=== PATIENT | male | born 1945 | race Caucasian/White ===

== ENCOUNTER 2019-12-29 08:59 | Inpatient (IN) | payer MEDICARE, BC ==
[~2019-12-29 08:59] MED LIST: Albumin 5% 500 ML ONE; Bupivacaine PF 0.5% 30 ML VIAL ONE; Dexamethasone 4 mg/ml Vial ONE; Dexmedetomidine 200 MCG/2 ML VIAL ONE; EPINEPHrine 1 MG/ML AMP ONE; Fentanyl 250 MCG/5 ML VIAL ONE; Heparin 10,000 UNITS/1 ML VIAL ONE; Midazolam HCl 5 mg/5 ml Vial ONE
[2019-12-29] MEDS ORDERED: Hetastarch 6% 500 ML 500 ML IVPB PRN (12:34)
[2019-12-29] MEDS ORDERED: Morphine 2 MG/ML SYRINGE SLOW IVP PRN (12:34)
[2019-12-29] MEDS ORDERED: Nitroglycerin 50 MG/250 ML BOT 250 ML IVPB PRN (12:34)
[2019-12-29] MEDS ORDERED: Mag-Al 1200 mg/1200 mg/30 ML UDCUP PO PRN (12:34)
[2019-12-29] MEDS ORDERED: Promethazine HCl 25 MG/ML VIAL IM PRN (12:34)
[2019-12-29] MEDS ORDERED: Bisacodyl 5 MG TAB PO PRN (12:34)
[2019-12-29] MEDS ORDERED: Guaifenesin DM 100-10/5 ML UDCUP PO PRN (12:34)
[2019-12-29] MEDS ORDERED: Magnesium 2 GM/50 ML 2 GM in Premix Bag 1 BAG IVPB SCH (12:34)
[2019-12-29] MEDS ORDERED: Phenylephrine 10 MG/NS 250 ML 250 ML IVPB PRN (12:34)
[2019-12-29] MEDS ORDERED: D5 1/2 NS w/20 mEq KCL 1,000 ML IV SCH (12:34)
[2019-12-29] MEDS ORDERED: traMADol HCl 50 MG TAB PO PRN (12:34)
[2019-12-29] MEDS ORDERED: Acetaminophen 325 MG TAB PO PRN (12:34)
[2019-12-29] MEDS ORDERED: Ondansetron PF 4 MG/2 ML Vial IVP PRN (12:34)
[2019-12-29] MEDS ORDERED: Norepinephrine 8 MG/0.9% NS 250 ML IVPB PRN (12:34)
[2019-12-29] MEDS ORDERED: Fentanyl 100 MCG/2 ML VIAL SLOW IVP PRN ×2 (12:34)
[2019-12-29] MEDS ORDERED: Bisacodyl 10 MG SUPP PR PRN (12:34)
[2019-12-29] MEDS ORDERED: hydrALAZINE 20 MG/ML VIAL SLOW IVP PRN (12:34)
[2019-12-29] MEDS ORDERED: Potassium Chloride 20 MEQ/100 ML PREMIX BAG IVPB PRN (12:34)
[2019-12-29] MEDS ORDERED: D5 1/2 NS w/20 mEq KCL 1,000 ML ONE (12:35)
[2019-12-29] MEDS ORDERED: Glycopyrrolate 0.2 MG/ML 5 ML SYRINGE ONE (12:52)
[2019-12-29] MEDS ORDERED: Heparin 5,000 UNITS/ML VIAL ONE (12:52)
[2019-12-29] MEDS ORDERED: Rocuronium Bromide 10 MG/ML (10ML VIAL) ONE (12:52)
[2019-12-29] MEDS ORDERED: Papaverine 60 MG/2 ML VIAL ONE (12:52)
[2019-12-29] MEDS ORDERED: Heparin 30,000 units/30 ml VIAL ONE (12:52)
[2019-12-29] MEDS ORDERED: Potassium Chloride 60 MEQ/30 ML VIAL ONE (12:52)
[2019-12-29] MEDS ORDERED: Calcium Chloride 1 GM/10 ML Abboject SYRINGE ONE (12:52)
[2019-12-29] MEDS ORDERED: Thrombin 5000 UNITS/5 ML VIAL ONE (12:52)
[2019-12-29] MEDS ORDERED: Lidocaine 2% PF 5 ML VIAL ONE (12:52)
[2019-12-29] MEDS ORDERED: Protamine Sulfate 250 MG/25 ML VIAL ONE (12:52)
[2019-12-29] MEDS ORDERED: PROPOFOL 200 MG/20 ML VIAL ONE (12:52)
[2019-12-29] MEDS ORDERED: Lidocaine 1% PF 5 ML VIAL ONE (12:52)
[2019-12-29] MEDS ORDERED: Vecuronium 10 MG VIAL ONE (12:52)
[2019-12-29] MEDS ORDERED: Cardioplegic Soln 1,000 ML BAG ONE (12:52)
[2019-12-29] MEDS ORDERED: Sodium Bicarb 50 MEQ/50 ML Abboject 8.4% SYRINGE ONE (12:52)
[2019-12-29] MEDS ORDERED: Magnesium Sulfate 1 GM/2 ML VIAL ONE (12:52)
[2019-12-29] MEDS ORDERED: Aminocaproic Acid 5 GM/20 ML VIAL ONE (12:52)
[2019-12-29] MEDS ORDERED: Ondansetron PF 4 MG/2 ML Vial ONE (12:52)
[2019-12-29] MEDS ORDERED: Norepinephrine 4 MG/4 ML VIAL ONE (12:52)
[2019-12-29 12:54] LABS: Actual Bicarbonate (HCO3a) 23.4 mEq/L (22-28); Base Excess (BEa) -5.1 mEq/L (-2.0 to +3.0); CO2 Tension 58.4 mmHg (35.0-45.0); Calcium, Ionized 1.25 mmol/L (1.12-1.30); Carboxyhemoglobin (COHb) 0.7 gm% (0.0-3.0); Hemoglobin (Hb) 13.3 g/dL (14.0-18.0); O2 Tension (PaO2), arterial 115.8 mmHg (> 70.0); Potassium - ABG Lab 4.21 mmol/L (3.70-5.30)
[2019-12-29 13:04] LABS: Puncture Site ALINE; pH, Arterial 7.22 (7.35-7.45)
[2019-12-29 13:18] LABS: #Eosinphils 0.1 thou/uL (0.0-0.7); #Lymphocytes 1.1 thou/uL (1.20-3.40); #Monocytes 0.7 thou/uL (0.11-0.59); #Neutrophils 11.7 thou/uL (1.40-6.50); %Basophils 0.3 % (0.0-1.0); %Eosinophils 0.7 % (0.0-10.0); %Lymphocytes 8.1 % (21.0-51.0); %Monocytes 5.1 % (0.0-10.0); %Neutrophils 85.7 % (42.0-75.0); Hemoglobin 12.8 g/dL (14.0-18.0); Mean Corpuscular Volume 93.8 fL (78.0-98.0); Mean Platelet Volume 9.1 fL (7.4-10.4); Platelet Count 105 thou/uL (130-400); RBC Distribution Width 13.7 % (11.5-14.5); Red Blood Cell (RBC) Count 4.27 mill/uL (4.70-6.10); White Blood Cell (WBC) Count 13.6 thou/uL (4.8-10.8)
[2019-12-29 13:19] LABS: INR-International Normal Ratio 1.3; PTT 32.6 SEC (22.9-36.1); Prothrombin Time 15.9 sec (12.0-14.7)
[2019-12-29 13:28] VITALS: BMI 24.9
[2019-12-29 13:34] LABS: Anion Gap 9 mmol/L (10-20); BUN (Urea Nitrogen) 14 mg/dL (8.4-25.7); Calc. Creatinine Clearance 104 mL/min (70-130); Calcium 8.4 mg/dL (7.8-10.44); Carbon Dioxide 23 mmol/L (23-31); Chloride 110 mmol/L (98-107); Estimated GFR-MDRD Greater than 90; Glucose 133 mg/dL (83-110); Potassium 4.3 mmol/L (3.5-5.1); Sodium 138 mmol/L (136-145)
[2019-12-29 13:35] LABS: Platelet Morphology Comment Appears Decreased; RBC Morphology Normal
[2019-12-29] MEDS: CEFAZOLIN 2 GM in Premix Bag 1 BAG IVPB SCH ×2 (15:23→23:04)
--- NOTE | 2019-12-29 16:02 | RAD ---
PORTABLE CHEST: 12/29/19 INDICATIONS: Postop sternotomy. COMPARISON: No recent comparison. FINDINGS/IMPRESSION: Cardiomegaly with postop sternotomy change. Mild vascular engorgement. Left basilar atelectasis or in filtrate cannot be excluded. Small effusions are suspected. Central line overlies the SVC and right a trium. POS: [facility]
--- NOTE | 2019-12-29 17:39 | EKG ---
Test Reason : POST CABG Blood Pressure : / mmHG Vent. Rate : 061 BPM Atrial Rate : 061 BPM P-R Int : 198 ms QRS Dur : 082 ms QT Int : 442 ms P-R-T Axes : 031 -35 043 degrees QTc Int : 444 ms Normal sinus rhythm Left axis deviation Abnormal ECG When compared with ECG of 07-MAY-2010 12:48, No significant change was found Confirmed by CHARMAINE MCFARLANE, DR. Patterson ([id number]) on 12/29/2019 5:39:31 PM Referred By: Radha TORRES Confirmed By:DR. Yesenia MONTANO MD
[2019-12-29] MEDS: Ketorolac Tromethamine 30 MG/ML VIAL IVP SCH ×2 (18:31→23:01)
[2019-12-29 18:43] LABS: Hemoglobin 10.4 g/dL (14.0-18.0)
[2019-12-29 18:58] LABS: Potassium 4.6 mmol/L (3.5-5.1)
--- NOTE | 2019-12-29 19:07 | CON ---
DATE OF CONSULTATION: 12/28/2019 REASON FOR CONSULTATION: Coronary artery disease, need for urgent bypass. HISTORY OF PRESENT ILLNESS: Mr. Holt is a 74-year-old gentleman who was seen by Dr. Lr, evaluated with outpatient PET scan, which was grossly abnormal with reversible ischemia in the anterior wall. His complaints at that time were chest pressure, tightness, burning, and shortness of breath during the testing. He was brought in for cardiac catheterization, which revealed LAD diagonal bifurcation near occlusion. He was transferred from the [facility] to [facility] for urgent bypass. Currently, the patient is asymptomatic, resting comfortably on the stretcher. PAST MEDICAL HISTORY: 1. GERD. 2. Dyslipidemia. 3. Hypertension. 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 6. Depression. 7. Hypertension. 8. Coronary artery disease. 9. 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 PAST SURGICAL HISTORY: 1. Appendectomy. 2. Right hip replacement. 3. Left arm surgery. 4. Cochlear implant. SOCIAL HISTORY: He quit smoking in 1974. He does not use alcohol or other drugs. He is and accompanied by his . ALLERGIES: VICODIN. CURRENT MEDICATIONS: Noted in the MAR. PHYSICAL EXAMINATION: GENERAL: This is a well-developed, well-nourished male, resting comfortably in the emergency department. VITAL SIGNS: His heart rate is 70 and regular. Blood pressure is 150/72. NECK: Supple without bruit. CHEST: Clear bilaterally. HEART: Rhythm is regular without murmur. ABDOMEN: Soft, nontender. EXTREMITIES: No edema. VASCULAR: He has palpable carotid, radial, femoral, dorsalis pedis pulses bilaterally. VENOUS: There is no venous varicosities or venous stasis changes. PSYCHIATRIC: He is awake, alert, and oriented to person, place, and time. ASSESSMENT: Urgent coronary artery bypass grafting. PLAN: Plan is for bypass to LAD and first diagonal branch. Job ID: [id number]
[2019-12-29] MEDS ORDERED: Atorvastatin Calcium 20 MG TAB PO SCH (21:00)
[2019-12-29] MEDS ORDERED: Famotidine/PF 20 mg/2ml Vial SLOW IVP SCH (21:00)
[2019-12-30] MEDS: traMADol HCl 50 MG TAB PO PRN ×2 (03:47→20:31)
[2019-12-30 04:59] LABS: #Lymphocytes 0.9 thou/uL (1.20-3.40); #Neutrophils 8.4 thou/uL (1.40-6.50); %Basophils 0.1 % (0.0-1.0); %Eosinophils 0.1 % (0.0-10.0); %Lymphocytes 8.7 % (21.0-51.0); %Monocytes 9.8 % (0.0-10.0); %Neutrophils 81.3 % (42.0-75.0); Hemoglobin 10.6 g/dL (14.0-18.0); Mean Corpuscular Hemoglobin 30.3 pg (27.0-31.0); Mean Corpuscular Volume 94.7 fL (78.0-98.0); Mean Platelet Volume 10.2 fL (7.4-10.4); Platelet Count 109 thou/uL (130-400); RBC Distribution Width 13.6 % (11.5-14.5); Red Blood Cell (RBC) Count 3.51 mill/uL (4.70-6.10); White Blood Cell (WBC) Count 10.3 thou/uL (4.8-10.8)
[2019-12-30 05:02] LABS: Anion Gap 9 mmol/L (10-20); BUN (Urea Nitrogen) 17 mg/dL (8.4-25.7); Calc. Creatinine Clearance 103 mL/min (70-130); Calcium 7.8 mg/dL (7.8-10.44); Carbon Dioxide 25 mmol/L (23-31); Chloride 107 mmol/L (98-107); Estimated GFR-MDRD Greater than 90; Glucose 128 mg/dL (83-110); Potassium 4.4 mmol/L (3.5-5.1); Sodium 137 mmol/L (136-145)
[2019-12-30] MEDS: Ketorolac Tromethamine 30 MG/ML VIAL IVP SCH ×3 (05:32→18:28)
--- NOTE | 2019-12-30 07:44 | OP ---
DATE OF PROCEDURE: 12/29/2019 PREOPERATIVE DIAGNOSES: 1. Coronary artery disease. 2. History of Guillain-[place]. 3. Hypertension. 4. Dyslipidemia. PROCEDURES PERFORMED: 1. Left radial artery arterial line placement. 2. Coronary artery bypass grafting x2: a. Left internal mammary artery to 1.0 mm proximal left anterior descending artery - good conduit and small target. b. Reverse saphenous vein to 0.8 mm D1 - good conduit and small targets. J[employer] APPLICATION DEVELOPER SURGEON: Anthony Campos MD ANESTHESIA: General endotracheal - Mason Cat MD. PUMP TIME: 45 minutes. CROSSCLAMP TIME: 31 minutes. LOW CORE TEMPERATURE: 36 degrees Celsius. KEYBOARD SPECIALIST: Cecy Rai. DRAINS: 24-Anguillan chest tubes x2. DRIPS: None. TRANSFUSIONS: None. DESCRIPTION OF PROCEDURE: After consent was obtained, the patient was brought to the operating room, placed in supine position on the operating table. Appropriate central line and monitors were placed, and general endotracheal anesthesia was induced. Chest, abdomen, and legs were prepped and draped in usual sterile fashion. Greater saphenous vein was harvested from the left thigh utilizing skip incisions. Wounds were irrigated and closed in layers. Median sternotomy was performed. Left internal mammary artery was harvested as a pedicle graft. The patient was systemically heparinized. Distal pedicle was divided and infused with papaverine. Thymic fat and pericardium were divided with electrocautery. Pericardial stay sutures were placed. Aortic and atrial cannulation was performed. After adequate heparinization, retrograde prime was performed. The patient was placed on cardiopulmonary bypass. Aortic crossclamp was applied, and antegrade sanguineous cardioplegic arrest was obtained. 1 L of antegrade cold [place] cardioplegia was given. Topical cold solution was used. Reverse saphenous vein was anastomosed to the proximal diagonal #1 in end-to-side fashion. Prior to completion of the anastomosis, a 1-mm probe dilated the anastomosis proximally and distally. Anastomosis was tested and was hemostatic. Mammary artery was brought through a window in the pericardium and anastomosed to LAD in end-to-side fashion with running 7-0 Prolene suture. On release of mammary clamps, good hooding of the anastomosis and good distal flow. Pedicle was secured with an interrupted 6-0 Prolene suture. The cross-clamp was removed, and partial occluding clamp placed. Saphenous vein was anastomosed to punch site in the aorta with running 6-0 Prolene suture. Partial occluding clamp was removed and graft was deaired. Anastomoses were inspected for hemostasis, which was good. The patient was warmed and weaned from cardiopulmonary bypass. After resumption of sinus rhythm, good hemodynamics, temperature greater than 36.5, bypass was discontinued. Transfusions were given. Protamine was administered. Decannulation was performed. A pursestring suture secured. The aortic cannulation site was reinforced with 4-0 Prolene suture. After adequate hemostasis had been obtained, 24-Anguillan chest tubes x2 were placed in mediastinum. The sternum was treated with vancomycin paste. Sternum was closed with #7 wire. Sternum was treated with platelet rich plasma, wires were twisted and buried. Wounds were irrigated. The parasternal block was performed with 0.5% Marcaine mixed with Decadron. The wounds were then treated with platelet poor plasma and closed in multiple layers. Needle, sponge, and instrument counts were all reported as correct at the end of the procedure. The patient was awakened, extubated, and transferred to the intensive care in stable, but critical condition. Job ID: [id number]
--- NOTE | 2019-12-30 07:50 | RAD ---
EXAM: Portable chest PROVIDED CLINICAL HISTORY: Post open heart COMPARISON: 12/29/2019 FINDINGS: Mediastinal drain is no longer apparent. Additional significant interval change with respect to the p rior examination is not apparent. IMPRESSION: As above.
[2019-12-30] MEDS: CEFAZOLIN 2 GM in Premix Bag 1 BAG IVPB SCH (08:20)
[2019-12-30] MEDS: Aspirin 325 MG TAB PO SCH (08:21)
[2019-12-30] MEDS: Magnesium 2 GM/50 ML 2 GM in Premix Bag 1 BAG IVPB SCH (08:21)
[2019-12-30] MEDS ORDERED: Prevnar 13-Val Conj/PF 0.5 ML SYRINGE IM ONE (09:00)
[2019-12-30] MEDS: ALPRAZolam 0.25 MG TAB PO PRN (20:30)
[2019-12-30] MEDS: Atorvastatin Calcium 40 MG TAB PO SCH (20:30)
[2019-12-31] MEDS: Ketorolac Tromethamine 30 MG/ML VIAL IVP SCH ×3 (00:01→12:02)
[2019-12-31] MEDS: Magnesium 2 GM/50 ML 2 GM in Premix Bag 1 BAG IVPB SCH (09:35)
[2019-12-31] MEDS: Aspirin 325 MG TAB PO SCH (09:35)
--- NOTE | 2019-12-31 10:23 | PRG ---
DATE OF SERVICE: 12/31/2019 The patient's blood pressure is running about 90 to 100. His heart rate is 88. He has just finished a walk around the hallway without difficulty and has no complaints this morning. His weight is 172 pounds. Chest incision is good. His lungs are clear to auscultation. His legs are without edema. He did have some fever last night, but this resolved with Tylenol. We will transfer him to the telemetry floor and encourage further ambulation, hold any blood pressure medicines. I will resume some oral Lasix tomorrow as he was on this prior to admission. We will also continue the p.r.n. Michael. Job ID: [id number]
[2019-12-31] MEDS ORDERED: Fentanyl 100 MCG/2 ML VIAL SLOW IVP PRN (13:43)
[2019-12-31] MEDS ORDERED: Mag-Al 1200 mg/1200 mg/30 ML UDCUP PO PRN (13:43)
[2019-12-31] MEDS ORDERED: Ondansetron PF 4 MG/2 ML Vial IVP PRN (13:43)
[2019-12-31] MEDS ORDERED: Nitroglycerin 0.4 MG TAB (25 Tab Bottle) SL PRN (13:43)
[2019-12-31] MEDS ORDERED: Bisacodyl 10 MG SUPP PR PRN (13:43)
[2019-12-31] MEDS ORDERED: Guaifenesin DM 100-10/5 ML UDCUP PO PRN (13:43)
[2019-12-31] MEDS ORDERED: Acetaminophen 325 MG TAB PO PRN (13:43)
[2019-12-31] MEDS: Bisacodyl 5 MG TAB PO PRN (14:50)
[2019-12-31] MEDS ORDERED: Amiodarone 450 MG in Dextrose 5% in Water 250 ML IVPB SCH (18:00)
[2019-12-31] MEDS ORDERED: Amiodarone 150 MG in Dextrose 5% in Water 100 ML IVPB SCH (18:00)
[2019-12-31 18:46] LABS: ALT (SGPT) 13 U/L (8-55); AST (SGOT) 34 U/L (5-34); Albumin 3.5 g/dL (3.4-4.8); Alkaline Phosphatase 66 U/L (40-110); Bilirubin, Direct 0.4 mg/dL (0.1-0.3); Bilirubin, Total 0.8 mg/dL (0.2-1.2); Magnesium 2.4 mg/dL (1.6-2.6); Protein, Total 5.6 g/dL (5.8-8.1)
[2019-12-31] MEDS: Atorvastatin Calcium 40 MG TAB PO SCH (20:51)
[2019-12-31] MEDS: Famotidine 20 MG TAB PO SCH (20:51)
[2020-01-01] MEDS: Potassium Chloride 10 MEQ TAB PO SCH (08:52)
[2020-01-01] MEDS: Furosemide 40 MG TAB PO SCH (08:52)
[2020-01-01] MEDS: Famotidine 20 MG TAB PO SCH ×2 (08:53→20:17)
[2020-01-01] MEDS: Aspirin 325 mg Enteric Coated Tablet PO SCH (08:55)
--- NOTE | 2020-01-01 09:53 | PRG ---
DATE OF SERVICE: 01/01/2020 The patient was maintaining a blood pressure of about 100 today, same as yesterday. Heart rate is currently in sinus rhythm and he did have an episode of atrial fibrillation with RVR about noon yesterday and was treated with amiodarone by Dr. Jc with conversion. He has no complaints. His weight is 171 compared to about 167 preop. His chest incision looks good and he has no peripheral edema. His lungs are clear. The patient will probably be ready for discharge tomorrow if he has no recurrence of his atrial fibrillation. Job ID: [id number]
--- NOTE | 2020-01-01 13:10 | CON ---
DATE OF CONSULTATION: HISTORY OF PRESENT ILLNESS: The patient is 74-year-old gentleman, who underwent coronary artery bypass surgery and developed rapid irregular heart rate. The patient was seen by Dr. Lr for cardiac evaluation. He was found to have a markedly abnormal PET scan suggestive of ischemia. The patient subsequently underwent a cardiac catheterization, which revealed him to have severe disease in the left anterior descending and diagonal branch. The patient was transferred here and underwent coronary artery bypass surgery x2. The patient was doing well until yesterday evening when he developed rapid irregular heart rate. The patient did not have any palpitations. The patient did not have any substernal chest discomfort. PAST MEDICAL HISTORY: 1. Coronary artery disease. 2. Hypertension. 3. Dyslipidemia. 4. History of Guillain-[place] syndrome. 5. Depression. PAST SURGICAL HISTORY: Coronary bypass surgery, appendectomy, hip surgery, and arm surgery. SOCIAL HISTORY: Nonsmoker. ALLERGIES: VICODIN. MEDICATIONS: See nursing list. REVIEW OF SYSTEMS: Ten-point system otherwise unremarkable. No history of easy bruising or bleeding or bright red blood per rectum. PHYSICAL EXAMINATION: GENERAL: A well-developed gentleman, in no acute distress. VITAL SIGNS: Blood pressure was 110/60. NECK: No jugular venous distention. LUNGS: Clear to auscultation. HEART: Regular rate and rhythm. Normal S1 and S2. No murmurs. ABDOMEN: Nondistended. EXTREMITIES: Showed trace edema. VASCULAR: Radial pulses are 2+. LABORATORY DATA: White blood cell count 10.3, hemoglobin 10.6, hematocrit 32.2, platelets 109. potassium 4.4, chloride 107, bicarbonate 25, BUN 17, creatinine 0.7. EKG normal sinus rhythm with left axis deviation. Telemetry monitoring rapid atrial fibrillation. IMPRESSION: 1. Paroxysmal atrial fibrillation. 2. History of coronary artery bypass surgery x2. 3. Hypertension. 4. Dyslipidemia. 5. History of Guillain-Bradley syndrome. This gentleman developed rapid atrial fibrillation. He converted with IV amiodarone. We will start the patient on p.o. medication. The patient is on aspirin and Lipitor. We will follow this patient with you through his hospitalization. Job ID: [id number] MTDD
[2020-01-01] MEDS: Bisacodyl 5 MG TAB PO PRN (16:16)
[2020-01-01] MEDS: Atorvastatin Calcium 40 MG TAB PO SCH (20:17)
[2020-01-01] MEDS: Amiodarone 200 MG TAB PO SCH (20:18)
[2020-01-01] MEDS ORDERED: Amiodarone 150 MG, Admixture Fee 1 EACH in Dextrose 5% in Water 100 ML IVPB SCH (23:59)
[2020-01-02] MEDS ORDERED: Digoxin 0.5 MG/2 ML AMP SLOW IVP PRN (01:00)
[2020-01-02] MEDS: Amiodarone 200 MG TAB PO SCH ×3 (08:55→21:08)
[2020-01-02] MEDS: Furosemide 40 MG TAB PO SCH (08:55)
[2020-01-02] MEDS: Aspirin 325 mg Enteric Coated Tablet PO SCH (08:56)
[2020-01-02] MEDS: Famotidine 20 MG TAB PO SCH ×2 (08:56→21:09)
[2020-01-02] MEDS: Potassium Chloride 10 MEQ TAB PO SCH (08:56)
[2020-01-02] MEDS ORDERED: Digoxin 0.125 MG TAB PO SCH ×2 (09:13→09:30)
[2020-01-02] MEDS: Atorvastatin Calcium 40 MG TAB PO SCH (21:08)
[2020-01-02] MEDS: ALPRAZolam 0.25 MG TAB PO PRN (21:09)
[2020-01-03] MEDS: Amiodarone 200 MG TAB PO SCH (07:55)
[2020-01-03] MEDS: Aspirin 325 mg Enteric Coated Tablet PO SCH (07:56)
[2020-01-03] MEDS: Potassium Chloride 10 MEQ TAB PO SCH (07:56)
[2020-01-03] MEDS: Famotidine 20 MG TAB PO SCH (07:56)
[2020-01-03] MEDS: Furosemide 40 MG TAB PO SCH (07:56)
[2020-01-03] MEDS ORDERED: Digoxin 0.125 MG TAB PO SCH (09:00)
--- NOTE | 2020-01-03 10:43 | DIS ---
DATE OF ADMISSION: 12/29/2019 DATE OF DISCHARGE: 01/03/2020 DIAGNOSES: 1. Coronary artery disease. 2. Postoperative atrial fibrillation/flutter. 3. Gastroesophageal reflux disease. 4. Dyslipidemia. 5. Hypertension. 6. History of Guillain-[place]. 7. Hearing loss. 8. History of Piña's esophagus. 9. Depression. PROCEDURE: Urgent coronary artery bypass grafting x2 - 1. Left internal mammary artery to left anterior descending. 2. Reverse saphenous vein to diagonal. HISTORY OF HOSPITAL STAY: The patient was transferred from [facility] for urgent coronary artery bypass grafting. He underwent bypass on 12/28. Postoperatively, he did very well. He was transferred out of the intensive care unit on first postoperative day. He has short run of atrial fibrillation and flutter controlled with amiodarone and digoxin. Otherwise, his recovery has been unremarkable. At the time of discharge, he is ambulatory, tolerating regular diet, having good bowel and bladder function. Incisions are clean and dry without evidence of infection. DISCHARGE MEDICATIONS: 1. Aspirin 325 mg daily. 2. Amiodarone 400 mg p.o. t.i.d. 3. Lipitor 40 mg at bedtime. 4. Digoxin 0.125 mg daily. 5. Valacyclovir 1000 mg b.i.d. 6. Omeprazole 40 mg daily. 7. Lasix 20 mg daily. 8. Xanax 0.5 mg p.o. daily. FOLLOWUP: Follow up is with me in [address] Lr in a month. Job ID: [id number]
[2020-01-03 11:54] VITALS: BP 121/61; TEMP 98.4
[2020-01-10 13:43] LABS: Actual Bicarbonate (HCO3a) 18.6 mEq/L (22-28); Analyzer IN Cardio OR; Base Excess (BEa) -6.2 mEq/L (-2.0 to +3.0); CO2 Tension 34.7 mmHg (35.0-45.0); Calcium, Ionized 1.19 mmol/L (1.12-1.30); Carboxyhemoglobin (COHb) 0.2 gm% (0.0-3.0); Hemoglobin (Hb) 12.5 g/dL (14.0-18.0); Potassium - ABG Lab 4.16 mmol/L (3.70-5.30); pH, Arterial 7.35 (7.35-7.45)
[2020-01-10 13:43] LABS: Actual Bicarbonate (HCO3a) 18.3 mEq/L (22-28); Analyzer IN Cardio OR; CO2 Tension 28.1 mmHg (35.0-45.0); Calcium, Ionized 1.28 mmol/L (1.12-1.30); Carboxyhemoglobin (COHb) 0.3 gm% (0.0-3.0); Hemoglobin (Hb) 9.6 g/dL (14.0-18.0); O2 Tension (PaO2), arterial 308.2 mmHg (> 70.0); Potassium - ABG Lab 4.31 mmol/L (3.70-5.30); pH, Arterial 7.43 (7.35-7.45)
[2020-01-10 13:44] LABS: Actual Bicarbonate (HCO3a) 21.7 mEq/L (22-28); Analyzer IN Cardio OR; Base Excess (BEa) -3.2 mEq/L (-2.0 to +3.0); CO2 Tension 37.9 mmHg (35.0-45.0); Calcium, Ionized 1.03 mmol/L (1.12-1.30); Carboxyhemoglobin (COHb) 0.1 gm% (0.0-3.0); Hemoglobin (Hb) 8.9 g/dL (14.0-18.0); O2 Tension (PaO2), arterial 309.4 mmHg (> 70.0); Potassium - ABG Lab 4.63 mmol/L (3.70-5.30); pH, Arterial 7.38 (7.35-7.45)
[2020-01-10 13:46] LABS: Actual Bicarbonate (HCO3a) 22.8 mEq/L (22-28); Analyzer IN Cardio OR; Base Excess (BEa) 0.1 mEq/L (-2.0 to +3.0); CO2 Tension 30.1 mmHg (35.0-45.0); Calcium, Ionized 1.02 mmol/L (1.12-1.30); Carboxyhemoglobin (COHb) 0.1 gm% (0.0-3.0); Hemoglobin (Hb) 9.8 g/dL (14.0-18.0); O2 Tension (PaO2), arterial 474.9 mmHg (> 70.0); Potassium - ABG Lab 4.86 mmol/L (3.70-5.30)
[2020-01-10 13:47] LABS: Actual Bicarbonate (HCO3a) 21.1 mEq/L (22-28); Analyzer IN Cardio OR; Base Excess (BEa) -2.5 mEq/L (-2.0 to +3.0); Calcium, Ionized 1.12 mmol/L (1.12-1.30); Carboxyhemoglobin (COHb) 0.4 gm% (0.0-3.0); Hemoglobin (Hb) 12.7 g/dL (14.0-18.0); Potassium - ABG Lab 3.94 mmol/L (3.70-5.30); pH, Arterial 7.42 (7.35-7.45)
[2020-01-11 09:52] LABS: CO2 Tension 34.9 mmHg (35.0-45.0); pH, Arterial 7.39 (7.35-7.45)
[2020-01-11 09:53] LABS: Actual Bicarbonate (HCO3a) 20.8 mEq/L (22-28); Analyzer IN Cardio OR; Base Excess (BEa) -3.4 mEq/L (-2.0 to +3.0); Calcium, Ionized 1.16 mmol/L (1.12-1.30); Carboxyhemoglobin (COHb) 0.7 gm% (0.0-3.0); Hemoglobin (Hb) 13.6 g/dL (14.0-18.0); O2 Tension (PaO2), arterial 421.7 mmHg (> 70.0); Potassium - ABG Lab 3.95 mmol/L (3.70-5.30)
== END 2020-01-03 12:12 | disposition home or self-care (01) | DRG 236 ==
LOC: SDC 08:59 → CCU 10:23 → IMCU/EMU 12-30 18:13 → 2NO 12-31 13:25
PROVIDERS: ADMIT Thoracic Surgery (Cardiothoracic Vascular Surgery); ATTEND Thoracic Surgery (Cardiothoracic Vascular Surgery)
PROC: 02100Z9 Bypass Coronary Artery, One Artery from Left Internal Mammary, Open Approach (ICD-10-PCS; principal; 2019-12-29)
PROC: 021009W Bypass Coronary Artery, One Artery from Aorta with Autologous Venous Tissue, Open Approach (ICD-10-PCS; 2019-12-29)
PROC: 5A1221Z Performance of Cardiac Output, Continuous (ICD-10-PCS; 2019-12-29)
DX: I25.10 Atherosclerotic heart disease of native coronary artery without angina pectoris (principal); I48.92 Unspecified atrial flutter; G61.0 Guillain-Barre syndrome; K21.9 Gastro-esophageal reflux disease without esophagitis; E78.5 Hyperlipidemia, unspecified; I10 Essential (primary) hypertension; H91.90 Unspecified hearing loss, unspecified ear; F32.9 Major depressive disorder, single episode, unspecified; I48.91 Unspecified atrial fibrillation; Z96.641 Presence of right artificial hip joint; Z79.01 Long term (current) use of anticoagulants; Z87.891 Personal history of nicotine dependence; Z88.5 Allergy status to narcotic agent
CPT/HCPCS: 36415; 36416; 36430; 71045; 80048; 80076; 82805; 83735; 84443; 85025; 85610; 85730; 86850; 86900; 86901; 93005; 93010; 93798; J0171; J0282; J0690; J1100; J1160; J1644; J1885; J2001; J2250; J2405; J2440; J2704; J2720; J3010; J3370; J3475; J3480; J7070; P9045; S0017; S0020; S0028

== ENCOUNTER 2020-01-08 15:16 | Inpatient (IN) | payer MEDICARE, BC, OTHER ==
[2020-01-08 15:50] LABS: Hemoglobin 11.9 g/dL (14.0-18.0); Mean Corpuscular HGB CONC 31.8 g/dL (32.0-36.0); Mean Corpuscular Hemoglobin 30.1 pg (27.0-31.0); Mean Corpuscular Volume 94.7 fL (78.0-98.0); Mean Platelet Volume 8.4 fL (7.4-10.4); Platelet Count 211 thou/uL (130-400); RBC Distribution Width 13.9 % (11.5-14.5); Red Blood Cell (RBC) Count 3.94 mill/uL (4.70-6.10); White Blood Cell (WBC) Count 17.8 thou/uL (4.8-10.8)
[2020-01-08] MEDS ORDERED: cloNIDine 0.1 MG TAB ONE (16:06)
[2020-01-08] MEDS ORDERED: Cefepime 2 GM VIAL ONE (16:06)
[2020-01-08 16:08] LABS: ALT (SGPT) 30 U/L (8-55); AST (SGOT) 40 U/L (5-34); Albumin 3.8 g/dL (3.4-4.8); Alkaline Phosphatase 100 U/L (40-110); Anion Gap 17 mmol/L (10-20); BUN (Urea Nitrogen) 10 mg/dL (8.4-25.7); Bilirubin, Total 0.7 mg/dL (0.2-1.2); CK (CPK) 43 U/L (30-200); Calc. Creatinine Clearance 0 mL/min (70-130); Carbon Dioxide 25 mmol/L (23-31); Chloride 100 mmol/L (98-107); Estimated GFR-MDRD 85; Globulin 3.5 g/dL (2.4-3.5); Glucose 115 mg/dL (83-110); Potassium 4.6 mmol/L (3.5-5.1); Protein, Total 7.3 g/dL (5.8-8.1); Sodium 137 mmol/L (136-145)
[2020-01-08 16:10] LABS: Band 18 % (5-11); Lymphocytes 3 % (21-51); MDiff Complete? YES; Monocytes 6 % (0-10); Neutrophil 72 % (42-75); Platelet Morphology Comment Appears Adequate; Polychromasia SLIGHT = 2-3 cells (100X) (0-2/hpf); Reactive Lymphocytes 1 % (0-10)
[2020-01-08 16:33] LABS: CKMB 0.9 ng/mL (0-6.6)
--- NOTE | 2020-01-08 17:22 | RAD ---
CHEST ONE VIEW: History: Chest pain Comparison: 12-30-2019 FINDINGS: Heart size is enlarged. Small left effusion. Left basilar airspace opacity. No pneumothorax. Right ronny ng is relatively clear. The central venous catheter has been removed. Mediastinal drains are removed. IMPRESSION: Small left effusion with left basilar opacity concerning for infection. POS: HOME
--- NOTE | 2020-01-08 17:52 | CT ---
CT ABDOMEN AND PELVIS STONE PROTOCOL: History: Pain Comparison: 2015 FINDINGS: Small bilateral pleural effusions. Compressive atelectasis in both lower lobes. There is also abnorma l consolidation within the left and right lower lobes aside from atelectatic change. Moderate pericar dial effusion. Moderate to large sliding hiatal hernia. There is a punctate 2 x 2 mm right inferior renal calculus. There is also a 2 x 2 mm right interpolar calculus. In the left kidney in the superior pole there are three separate 2 x 2 mm calculi. In the inferior po le of the left kidney are four separate 2 x 2 - 2 x 1 mm calculi. There is no hydroureteronephrosis. No ureteral calculus. No calculus within the urinary bladder. Mild bilateral perinephric stranding from renal disease. Noncontrast evaluation of the spleen, liver, gallbladder, pancreas unremarkable. The aortic contour is not aneurysmal. There are no dilated loops of large or small bowel. Moderate vascular calcifications of the aortoiliac system. Moderate facet arthrosis of the lower lumbar spine. Mild degenerative disc space height loss at L5-S1 . IMPRESSION: 1. Nonobstructive bilateral renal calculi. 2. Small right and left pleural effusion with combination of compressive atelectasis and concern for possible superimposed bibasilar pneumonia. 3. No evidence of restricted uropathy. 4. No acute inflammatory process in the abdomen or pelvis. 5. Moderate to large sliding hiatal hernia. POS: HOME
[2020-01-08] MEDS ORDERED: Calcium Carbonate 500 MG ChewTAB PO PRN (18:12)
[2020-01-08] MEDS ORDERED: Senokot S 8.6-50 MG TAB PO PRN (18:12)
[2020-01-08] MEDS ORDERED: Vancomycin 1 GM in Premix Bag 1 BAG IVPB SCH (18:15)
[2020-01-08] MEDS ORDERED: Morphine 2 MG/ML SYRINGE ONE (18:30)
--- NOTE | 2020-01-08 19:01 | PDOC.HHP ---
Hospitalist HPI - History of Present Illness right flank pain History of Present Illness: PCP: Dr. Soto The patient is a 74/M ith H significant for CABG x2 (12/29/2019) and GERD that presents to the ER for the above complaint. The patient reports developing right flank pain x 4-5 days, radiating to right abdomen, describes pain as " like getting hit with a bat", exacerbated with movement and relieved by repositioning his body. Reports associated low grade temp, Tmax 100F for past several days. He is s/p CABG x 2 and was seen by a Nurse Practitioner that told him he had some mild crackles to LLL and needed to perform incentive spirometer often and mobilize. Also, she thought the vein graft site to his left upper groin might be a "little red", denies pain or drainage to his graft sites. He reports that he has been mobilizing 3-4 times per day, but has developed moderate pain to his right hip. Reports the right hip pain is chronic, since his hip replacement. Denies any chest pain or heart palpitations or lower extremity swelling. Denies any SOB or wheezing or cough. Denies any nausea or vomiting or diarrhea. Denies any swelling to his testicles. ED Course: VS T 100.1F, HR 98, RR 20, Sp02 98% RA EKG SR, 93 bpm, Q wave in V1-V3 CXR + small left effusion and left basilar opacity concerning for infection Trop 0.913, CKMB 0.9, BNP 173.6 LA 2.1 WBC 17.8 with bandemia CMP unremarkable Given: 1L NS vanc and cefepime Hospitalist ROS - Review of Systems Constitutional: reports: fever (low grade temp). denies: chills, weakness, malaise Eyes: denies: pain, vision change, conjunctivae inflammation, eyelid inflammation, redness, other ENT: denies: ear pain, ear discharge, nose pain, nose discharge, nose congestion , mouth pain, mouth swelling, throat pain, throat swelling, other Respiratory: denies: cough, dry, shortness of breath, hemoptysis, SOB with excertion, pleuritic pain, sputum, wheezing, other Cardiovascular: denies: chest pain, palpitations, orthopnea, paroxysmal noc. dyspnea, edema, light headedness, other Gastrointestinal: reports: abdominal pain (right flank pain). denies: nausea, vomiting, diarrhea, constipation, melena, hematochezia Genitourinary: denies: dysuria, frequency, incontinence, hematuria, retention, other Musculoskeletal: denies: shoulder pain Skin: denies: bruising Neurological: denies: weakness, numbness, incoordination, change in speech Hospitalist History - Past Medical History Source: patient Cardiac: reports: CAD QUESTIONED DOCUMENTS EXAMINER: reports: Other (guillian barre (2006)) Gastrointestinal: reports: GERD, Other (Barretts esophagus) Psych: reports: Other (PTSD) - Past Surgical History Past Surgical History: reports: Appendectomy, CABG (x2 (01/03)), Total Hip Replacement - Family History Family History: reports: diabetes mellitus - Social History Smoking Status: Never smoker Alcohol: reports: Rare Drugs: reports: none Living Situation: With Family Occupation: Retired Activity level: uses cane/walker - Exam General Appearance: NAD, awake alert Eye: anicteric sclera ENT: normocephalic atraumatic Neck: supple, no JVD Heart: RRR, no murmur, no gallops, no rubs, normal peripheral pulses Respiratory: no wheezes, no tachypnea, rales Respiratory - other findings: left lower lobe Gastrointestinal: soft, non-tender, non-distended, normal bowel sounds, no guarding, no rigidity Extremities: no cyanosis, no edema Skin: no rashes Skin - other findings: CABG chest site c/d/i; L groin upper site mild erythema, NTTP, no drainage Neurological: no focal deficits Psychiatric: normal affect, A&O x 3 Psychiatric - other findings: [facility] Hospitalist Results - Labs Result Diagrams: 01/08/20 15:34 01/08/20 15:34 Lab results: WBC 17.8 thou/uL (4.8-10.8) H 01/08/20 15:34 Hgb 11.9 g/dL (14.0-18.0) L 01/08/20 15:34 Hct 37.4 % (42.0-52.0) L 01/08/20 15:34 MCV 94.7 fL (78.0-98.0) 01/08/20 15:34 Plt Count 211 thou/uL (130-400) 01/08/20 15:34 Band Neuts % (Manual) 18 % (5-11) H 01/08/20 15:34 Sodium 137 mmol/L (136-145) 01/08/20 15:34 Potassium 4.6 mmol/L (3.5-5.1) 01/08/20 15:34 Chloride 100 mmol/L (98-107) 01/08/20 15:34 Carbon Dioxide 25 mmol/L (23-31) 01/08/20 15:34 BUN 10 mg/dL (8.4-25.7) 01/08/20 15:34 Creatinine 0.87 mg/dL (0.7-1.3) 01/08/20 15:34 Glucose 115 mg/dL (83-110) H 01/08/20 15:34 Lactic Acid 2.1 mmol/L (0.5-2.2) 01/08/20 15:34 Calcium 9.0 mg/dL (7.8-10.44) 01/08/20 15:34 Total Bilirubin 0.7 mg/dL (0.2-1.2) 01/08/20 15:34 AST 40 U/L (5-34) H 01/08/20 15:34 ALT 30 U/L (8-55) 01/08/20 15:34 Alkaline Phosphatase 100 U/L (40-110) 01/08/20 15:34 Creatine Kinase 43 U/L (30-200) 01/08/20 15:34 CK-MB (CK-2) 0.9 ng/mL (0-6.6) 01/08/20 15:34 Troponin I 0.913 ng/mL (< 0.028) H* 01/08/20 15:34 C-Reactive Protein 20.01 mg/dL (= or < 0.5) H 01/08/20 15:34 B-Natriuretic Peptide 173.6 pg/mL (0-100) H 01/08/20 15:34 Serum Total Protein 7.3 g/dL (5.8-8.1) 01/08/20 15:34 Albumin 3.8 g/dL (3.4-4.8) 01/08/20 15:34 - EKG Interpretation EKG: NSR 93 - Radiology Interpretation Chest x-ray Status: report reviewed by ut Hospitalist H&P A/P - Problem (1) Sepsis Code(s): A41.9 - SEPSIS, UNSPECIFIED ORGANISM Status: Acute Assessment and Plan: Admit to telemetry floor, inpatient status Expected length of stay at least 2 midnights Presented to ER tachycardic 98, T100.F, WBC 17.8 with bandemia CXR + let basilar opacity LA 2.1, repeat pending Blood and COVID -19 pending results Troponin 0.913, ER doctor spoke to Dr. Saucedo and he feels elevation is typical s /p CABG Will Continue Vanc and cefepime IVPB Received 1L NS in ER, will continue IVF at 50mls/hr Repeat BMP and CBC in am (2) Pneumonia Code(s): J18.9 - PNEUMONIA, UNSPECIFIED ORGANISM Status: Acute Assessment and Plan: Presented to ER tachycardic 98, T100.F, RR 20, SP02 98%RA WBC 17.8 with bandemia CXR + let basilar opacity Will Continue Vanc and cefepime IVPB Received 1L NS in ER, will continue IVF at 50mls/hr Repeat BMP and CBC in am (3) Suspected COVID-19 virus infection Code(s): Z20.828 - CONTACT W AND EXPOSURE TO OTH VIRAL COMMUNICABLE DISEASES Status: Acute Assessment and Plan: Denies any recent travel, reports staying at home since COVID pandemic Had recent hospitalization for CABG COVID results pending Has WBC 17.[address], [address] on droplet precautions Will check baseline acute phase reactants (4) S/P CABG x 2 Code(s): Z95.1 - PRESENCE OF AORTOCORONARY BYPASS GRAFT Status: Acute Assessment and Plan: Will restart home meds ASA, amiodarone and digoxin (5) GERD (gastroesophageal reflux disease) Code(s): K21.9 - GASTRO-ESOPHAGEAL REFLUX DISEASE WITHOUT ESOPHAGITIS Status: Chronic Assessment and Plan: Will place on protonix BID (6) PTSD (post-traumatic stress disorder) Code(s): F43.10 - POST-TRAUMATIC STRESS DISORDER, UNSPECIFIED Status: Chronic Assessment and Plan: Will restart home med xanax - Plan Plan: Consult PT Protonix GI prophylaxis LMWH DVT prophylaxis Full Code MPOA is spouse, Anette Holt at [phone] Newell
[2020-01-08 19:10] LABS: Lactic Acid 1.2 mmol/L (0.5-2.2)
[2020-01-08 20:15] VITALS: BMI 26.0
[2020-01-08] MEDS: Acetaminophen 325 MG TAB PO PRN (21:10)
[2020-01-08] MEDS: Sodium Chloride 0.9% 1,000 ML IV SCH (21:10)
[2020-01-08] MEDS: Atorvastatin Calcium 40 MG TAB PO SCH (21:10)
[2020-01-08] MEDS: Famotidine 20 MG TAB PO SCH (21:10)
[2020-01-08] MEDS: ALPRAZolam 0.5 MG TAB PO SCH (21:10)
[2020-01-09] MEDS: Cefepime 2 GM in Sodium Chloride 0.9% 100 ML IVPB SCH ×2 (03:45→14:28)
[2020-01-09] MEDS: Acetaminophen 325 MG TAB PO PRN (03:48)
[2020-01-09 04:48] LABS: #Eosinphils 0.1 thou/uL (0.0-0.7); #Lymphocytes 1.2 thou/uL (1.20-3.40); #Monocytes 1.7 thou/uL (0.11-0.59); #Neutrophils 15.9 thou/uL (1.40-6.50); %Basophils 0.2 % (0.0-1.0); %Eosinophils 0.3 % (0.0-10.0); %Lymphocytes 6.2 % (21.0-51.0); %Monocytes 8.8 % (0.0-10.0); %Neutrophils 84.6 % (42.0-75.0); Hemoglobin 10.2 g/dL (14.0-18.0); Mean Corpuscular Hemoglobin 30.4 pg (27.0-31.0); Mean Corpuscular Volume 94.7 fL (78.0-98.0); Mean Platelet Volume 8.4 fL (7.4-10.4); Platelet Count 154 thou/uL (130-400); RBC Distribution Width 13.8 % (11.5-14.5); Red Blood Cell (RBC) Count 3.38 mill/uL (4.70-6.10); White Blood Cell (WBC) Count 18.8 thou/uL (4.8-10.8)
[2020-01-09 05:05] LABS: Anion Gap 14 mmol/L (10-20); BUN (Urea Nitrogen) 10 mg/dL (8.4-25.7); Calc. Creatinine Clearance 94 mL/min (70-130); Calcium 8.4 mg/dL (7.8-10.44); Carbon Dioxide 21 mmol/L (23-31); Chloride 107 mmol/L (98-107); Estimated GFR-MDRD Greater than 90; Glucose 95 mg/dL (83-110); Potassium 4.1 mmol/L (3.5-5.1); Sodium 138 mmol/L (136-145)
[2020-01-09] MEDS: Vancomycin 1 GM in Premix Bag 1 BAG IVPB SCH ×2 (05:16→17:10)
[2020-01-09] MEDS: Aspirin 325 mg Enteric Coated Tablet PO SCH (07:57)
[2020-01-09] MEDS: Potassium Chloride 10 MEQ TAB PO SCH ×2 (07:57→17:05)
[2020-01-09] MEDS: FLUoxetine HCl 20 MG CAP PO SCH (07:57)
[2020-01-09] MEDS: Enoxaparin Sodium 40 MG/0.4 ML SYRINGE SC SCH (07:58)
[2020-01-09] MEDS: Digoxin 0.125 MG TAB PO SCH (07:58)
[2020-01-09] MEDS: Famotidine 20 MG TAB PO SCH ×2 (07:58→20:35)
[2020-01-09] MEDS: Furosemide 40 MG TAB PO SCH ×2 (07:58→13:00)
[2020-01-09 10:35] LABS: SARS-CoV-2 MS2 Positive; SARS-CoV-2 N Gene Negative; SARS-CoV-2 S Gene Negative; SARS-CoV-2 orf1ab Negative
[2020-01-09] MEDS ORDERED: traMADol HCl 50 MG TAB PO SCH ×2 (12:03→12:15)
--- NOTE | 2020-01-09 13:12 | RAD ---
EXAM: CHEST ONE VIEW: History: Follow up pleural effusion. Comparison: 01-08-2020 FINDINGS: Persistent cardiomegaly. Evidence of at least a moderate sized hiatal hernia. Possibly minimal fluid within the esophagus. Possible bronchiectasis in the right midlung zone, overall appearance is little changed from prior study. IMPRESSION: Cardiomegaly with bilateral pleural effusions, slightly larger on the left side. Increased bronchovas cular markings bilaterally. Possible left midlung zone bronchiectasis. No evidence for other signific ant acute process. Consider short term follow up. POS: [facility]
--- NOTE | 2020-01-09 13:54 | CON ---
DATE OF CONSULTATION: HISTORY OF PRESENT ILLNESS: Mr. Holt is a 74-year-old gentleman, who is status post coronary artery bypass grafting with a REGAN to LAD and saphenous vein graft to diagonal on 12/28. He presented with right flank pain to the emergency department. His incisions all look fine. He has been walking some at home and has been seen by a home health nurse who told him he had crackles in his left lung. He came to the emergency department and was admitted. His white blood cell count was 17,000. He had a left-sided infiltrate per the emergency room physician. On my read, the chest x-ray looks more like fluid overload. He has been started on vancomycin and cefepime. He has been afebrile since admission. Repeat laboratory this morning is essentially unchanged. His weight is recorded as 161 pounds. He is in normal sinus rhythm. PHYSICAL EXAMINATION: CHEST: Incisions are clean and dry. His chest has some rhonchi type breath sounds throughout. Sternum is stable. ABDOMEN: Soft and nontender. EXTREMITIES: There is mild edema. ASSESSMENT AND PLAN: Probable fluid overload, but there may be a pneumonic component to his pulmonary disease. I have added some diuretics and EzPAP nebs. Job ID: [id number]
[2020-01-09 15:03] LABS: Bacteria/HPF None Seen HPF (None Seen); Bilirubin Negative (Negative); Blood, Urine Trace (Negative); Clarity Clear (Clear); Glucose, Urine (Dipstick) Normal (Negative); Leukocyte Negative Leu/uL (Negative); Nitrite Negative (Negative); Protein, Urine (Dipstick) Negative (Neg-Trace); RBC/HPF 0-3 HPF (0-3); Squamous Epithelial 0-3 HPF (0-3); Urobilinogen Normal mg/dL (Less than 2); WBC/HPF 0-3 HPF (0-3)
[2020-01-09 15:04] LABS: Urine Culture Reflex No No
[2020-01-09] MEDS: Sodium Chloride 0.9% 1,000 ML IV SCH (15:05)
[2020-01-09] MEDS ORDERED: Morphine 2 MG/ML SYRINGE SLOW IVP PRN (15:05)
--- NOTE | 2020-01-09 19:43 | PDOC.HOSPP ---
- Subjective Encounter Date: 01/09/20 Encounter Time: 14:00 Subjective: The patient reports that he has flank pain on the right side. Per family he had back pain radiating to his abdomen. No nausea or vomiting. Pt reports no significant cough or SOB Spoke to family extensively, asked questions about why he does not have a PICC line to go home, explained not indicated unless patient needs prolonged IV antibiotics - Objective Vital Signs & Weight: Vital Signs (12 hours) Temp Pulse Pulse Resp BP BP BP 01/09/20 18:20 63 20 01/09/20 16:27 98.7 F 94 18 126/59 L 01/09/20 15:04 98.9 F 96 16 123/57 L 01/09/20 13:16 93 113/59 L 117/56 L 01/09/20 11:00 96.6 F L 91 14 138/73 01/09/20 07:58 85 Pulse Ox 01/09/20 18:20 94 L 01/09/20 16:27 96 01/09/20 15:04 93 L 01/09/20 13:16 01/09/20 11:00 96 01/09/20 07:58 Weight Weight 161 lb 9.6 oz I&O: 01/08/20 01/09/20 01/10/20 06:59 06:59 06:59 Intake Total 1140 480 Output Total 900 560 Balance 240 -80 Result Diagrams: 01/09/20 04:35 01/09/20 04:35 Hospitalist ROS - Review of Systems Constitutional: denies: fever, chills - Medication Medications: Active Medications Generic Name Dose Route Start Last Admin Trade Name Erik PRN Reason Stop Dose Admin Acetaminophen 650 mg 01/08/20 18:12 01/09/20 03:48 Tylenol PO 650 mg Q4H PRN Administration Headache/Fever/Mild Pain (1-3) Albuterol/Ipratropium 3 ml 01/09/20 07:00 01/09/20 18:20 Duoneb EZPAP 01/10/20 01:01 3 ml [id number] JUAN ALBERTO Administration Alprazolam 0.5 mg 01/08/20 21:00 01/08/20 21:10 Xanax PO 0.5 mg HS JUAN ALBERTO Administration Aspirin 325 mg 01/09/20 09:00 01/09/20 07:57 Ecotrin PO 325 mg DAILY JUAN ALBERTO Administration Atorvastatin Calcium 40 mg 01/08/20 21:00 01/08/20 21:10 Lipitor PO 40 mg HS JUAN ALBERTO Administration Digoxin 0.125 mg 01/09/20 09:00 01/09/20 07:58 Lanoxin PO 0.125 mg DAILY JUAN ALBERTO Administration Enoxaparin Sodium 40 mg 01/09/20 09:00 01/09/20 07:58 Lovenox SC 40 mg 0900 JUAN ALBERTO Administration Famotidine 20 mg 01/08/20 21:00 01/09/20 07:58 Pepcid PO 20 mg BID JUAN ALBERTO Administration Fluoxetine HCl 20 mg 01/09/20 09:00 01/09/20 07:57 Prozac PO 20 mg DAILY JUAN ALBERTO Administration Furosemide 40 mg 01/09/20 09:00 01/09/20 13:00 Lasix PO 40 mg 0900,1400 JUAN ALBERTO Administration Cefepime HCl 2 gm/ Sodium 100 mls @ 200 mls/hr 01/09/20 04:00 01/09/20 14:28 Chloride IVPB 100 mls 0400,1600 JUAN ALBERTO Administration Vancomycin HCl 1 gm/ Device 200 mls @ 200 mls/hr 01/09/20 05:00 01/09/20 17: 10 IVPB 200 mls 0500,1700 JUAN ALBERTO Administration Pantoprazole Sodium 40 mg 01/08/20 21:00 01/09/20 07:57 Protonix PO 40 mg BID JUAN ALBERTO Administration Potassium Chloride 10 meq 01/09/20 08:00 01/09/20 17:05 Klor-Con 10 PO 10 meq BID-WM JUAN ALBERTO Administration - Exam General Appearance: NAD, awake alert Eye: PERRL, anicteric sclera ENT: normocephalic atraumatic, no oropharyngeal lesions Neck: no JVD Heart: RRR, no murmur, no gallops, no rubs Respiratory: CTAB, no wheezes, no rales, no ronchi Gastrointestinal: soft, non-distended, normal bowel sounds Gastrointestinal - other findings: right flank tenderness. Mild right thigh tenderness. No bruising noted Extremities: no cyanosis, no clubbing, no edema Skin: normal turgor, no lesions, no rashes Neurological: cranial nerve grossly intact, normal sensation to touch, no focal deficits, no new deficit Musculoskeletal: normal tone, normal strength, no muscle wasting Hosp A/P - Plan CT abdomen: bilateral perinephric stranding. Moderate vascular calcifications of aortoiliac system. Moderate facet arthrosis of lumbar spine. Small bilateral pleural effusions. Consolidation left and right lower lobe. Moderate pericardial effusion This is 74 year old male who presented with right flank pain, abd pain, admitted for pneumonia vs heart failure #Pneumonia vs heart failure #Pericardial effusion - patient with right sided flank pain, CT scan showing possible bibasilar consolidation but also pleural effusions. - patient with no fever but with increasing WBC up to 18 and had elevated bands - continue vanc and cefepime. Blood cultures are negative. Patient ruled out for COVID - continue lasix bid - check ECHO to evaluate pericardial effusion - PT recommends home with home health #Right flank pain #Kidney Stones - UA unremarkable, CT scan shows bilateral kidney stones, nonobstructing. Will monitor Anemia - stable, will monitor Chronic pain - continue tramadol DVT prophylaxis: enoxaparin Code status: full code
[2020-01-09] MEDS: ALPRAZolam 0.5 MG TAB PO SCH (20:29)
[2020-01-09] MEDS: traMADol HCl 50 MG TAB PO SCH (20:29)
[2020-01-09] MEDS: Atorvastatin Calcium 40 MG TAB PO SCH (20:35)
[2020-01-10] MEDS: Acetaminophen 325 MG TAB PO PRN ×2 (03:43→13:14)
[2020-01-10] MEDS: Cefepime 2 GM in Sodium Chloride 0.9% 100 ML IVPB SCH ×2 (03:44→16:46)
[2020-01-10 04:42] LABS: #Lymphocytes 0.9 thou/uL (1.20-3.40); #Monocytes 1.3 thou/uL (0.11-0.59); %Eosinophils 0.2 % (0.0-10.0); %Lymphocytes 5.7 % (21.0-51.0); %Monocytes 8.2 % (0.0-10.0); %Neutrophils 85.9 % (42.0-75.0); Hemoglobin 9.3 g/dL (14.0-18.0); Mean Corpuscular HGB CONC 31.1 g/dL (32.0-36.0); Mean Corpuscular Hemoglobin 29.2 pg (27.0-31.0); Mean Corpuscular Volume 93.9 fL (78.0-98.0); Mean Platelet Volume 8.2 fL (7.4-10.4); Platelet Count 143 thou/uL (130-400); Red Blood Cell (RBC) Count 3.17 mill/uL (4.70-6.10); White Blood Cell (WBC) Count 16.3 thou/uL (4.8-10.8)
[2020-01-10 04:51] LABS: Vancomycin, Trough 9.3 ug/mL
[2020-01-10 04:54] LABS: Anion Gap 12 mmol/L (10-20); BUN (Urea Nitrogen) 12 mg/dL (8.4-25.7); Calc. Creatinine Clearance 81 mL/min (70-130); Calcium 8.4 mg/dL (7.8-10.44); Carbon Dioxide 26 mmol/L (23-31); Chloride 102 mmol/L (98-107); Estimated GFR-MDRD Greater than 90; Glucose 96 mg/dL (83-110); Potassium 3.5 mmol/L (3.5-5.1); Sodium 136 mmol/L (136-145)
[2020-01-10] MEDS: Vancomycin 1 GM in Premix Bag 1 BAG IVPB SCH ×4 (05:17→22:06)
[2020-01-10] MEDS ORDERED: Metolazone 5 MG TAB PO SCH (06:15)
[2020-01-10] MEDS: Digoxin 0.125 MG TAB PO SCH (08:46)
[2020-01-10] MEDS: Aspirin 325 mg Enteric Coated Tablet PO SCH (08:46)
[2020-01-10] MEDS: Potassium Chloride 10 MEQ TAB PO SCH ×2 (08:46→16:46)
[2020-01-10] MEDS: Enoxaparin Sodium 40 MG/0.4 ML SYRINGE SC SCH (08:47)
[2020-01-10] MEDS: FLUoxetine HCl 20 MG CAP PO SCH (08:47)
[2020-01-10] MEDS: traMADol HCl 50 MG TAB PO SCH ×2 (08:47→20:27)
[2020-01-10] MEDS: Famotidine 20 MG TAB PO SCH ×2 (08:47→20:28)
--- NOTE | 2020-01-10 09:14 | RAD ---
SINGLE VIEW OF THE CHEST: COMPARISON: 01/09/2020. HISTORY: Followup pneumonia. FINDINGS: A single view of the chest shows an enlarged but stable cardiomediastinal silhouette. The patient is status post sternotomy There are stable multifocal areas of airspace opacity in the lungs consisten t with multifocal pneumonia. There may be small bilateral pleural effusions. IMPRESSION: Stable exam. POS: [facility]
--- NOTE | 2020-01-10 12:34 | PQF ---
CLINICAL DOCUMENTATION IMPROVEMENT CLARIFICATION FORM: ICD-10 Updated PLEASE DO AN ADDENDUM TO THE PROGRESS NOTE WITH ANY DOCUMENTATION UPDATES OR ADDITIONS AND CARRY THROUGH TO DC SUMMARY. THANK YOU. DATE: 01/10/20 ATTN: RUKHSANA Please exercise your independent, professional judgment in responding to the clarification form. Clinical indicators are provided on the bottom of this form for your review Please check appropriate box(es): [ X Sepsis present on admission [ ] Sepsis NOT present on admission [ ] Unable to determine Due to: Due to: [ ] Device (please specify) [ ] Implant [ ] Graft [ ] Infusion [ ] SIRS due to non-infectious process (please specify etiology) [ ] Localized infection without sepsis [ ] Other diagnosis [ ] Unable to determine For continuity of documentation, please document condition throughout progress notes and discharge summary. Thank You. CLINICAL INDICATORS - SIGNS / SYMPTOMS / LABS / RESULTS AND LOCATION IN ER NOTE: "SEPSIS" RR 30 H&P: "SEPSIS" WBC 01/07-01/08: 17.8 / 18.8 BANDS 01/07: 18 CRP 01/07: 20.01 RISKS: PNEUMONIA (ER NOTE, H&P) KIDNEY STONES (PN 01/08) CABG 12/28 (H&P) TREATMENT: IV VANCOMYCIN (ER-PRESENT) IV CEFEPIME (ER-PRESENT) IV FLUIDS (ER) BLOOD CULTURES (01/07) TELEMETRY MONITORING SAP [employer] Winform Viewer (This form is maintained as a part of the permanent medical record) 2014 [employer]. All Rights Reserved NAIMA [email or web address] [facility]
--- NOTE | 2020-01-10 17:35 | PDOC.HOSPP ---
- Subjective Encounter Date: 01/10/20 Subjective: Feeling a little better today. - Objective Vital Signs & Weight: Vital Signs (12 hours) Temp Pulse Pulse Pulse Resp BP BP 01/10/20 15:06 98.2 F 82 20 01/10/20 13:39 77 78 114/59 L 107/57 L 01/10/20 11:14 97.8 F 78 21 H 01/10/20 08:46 79 01/10/20 08:33 98.9 F 79 18 01/10/20 07:56 BP Pulse Ox 01/10/20 15:06 114/56 L 98 01/10/20 13:39 01/10/20 11:14 110/61 98 01/10/20 08:46 01/10/20 08:33 109/56 L 93 L 01/10/20 07:56 93 L Weight Weight 154 lb 1.6 oz I&O: 01/09/20 01/10/20 01/11/20 06:59 06:59 06:59 Intake Total 1140 1050 Output Total 900 685 Balance 240 365 Result Diagrams: 01/10/20 04:15 01/10/20 04:15 Hospitalist ROS - Medication Medications: Active Medications Generic Name Dose Route Start Last Admin Trade Name Freq PRN Reason Stop Dose Admin Acetaminophen 650 mg 01/08/20 18:12 01/10/20 13:14 Tylenol PO 650 mg Q4H PRN Administration Headache/Fever/Mild Pain (1-3) Alprazolam 0.5 mg 01/08/20 21:00 01/09/20 20:29 Xanax PO 0.5 mg HS JUAN ALBERTO Administration Aspirin 325 mg 01/09/20 09:00 01/10/20 08:46 Ecotrin PO 325 mg DAILY JUAN ALBERTO Administration Atorvastatin Calcium 40 mg 01/08/20 21:00 01/09/20 20:35 Lipitor PO 40 mg HS JUAN ALBERTO Administration Digoxin 0.125 mg 01/09/20 09:00 01/10/20 08:46 Lanoxin PO 0.125 mg DAILY JUAN ALBERTO Administration Enoxaparin Sodium 40 mg 01/09/20 09:00 01/10/20 08:47 Lovenox SC 40 mg 0900 JUAN ALBERTO Administration Famotidine 20 mg 01/08/20 21:00 01/10/20 08:47 Pepcid PO 20 mg BID JUAN ALBERTO Administration Fluoxetine HCl 20 mg 05/25/20 09:00 01/10/20 08:47 Prozac PO 20 mg DAILY JUAN ALBERTO Administration Cefepime HCl 2 gm/ Sodium 100 mls @ 200 mls/hr 01/09/20 04:00 01/10/20 16:46 Chloride IVPB 100 mls 0400,1600 JUAN ALBERTO Administration Vancomycin HCl 1 gm/ Device 200 mls @ 200 mls/hr 01/10/20 06:00 01/10/20 13: 15 IVPB 200 mls Q8HR JUAN ALBERTO Administration Morphine Sulfate 2 mg 01/09/20 15:05 01/10/20 14:58 Morphine SLOW IVP 2 mg Q4H PRN Administration Moderate to Severe Pain (6-10) Pantoprazole Sodium 40 mg 01/08/20 21:00 01/10/20 08:47 Protonix PO 40 mg BID JUAN ALBERTO Administration Potassium Chloride 10 meq 01/09/20 08:00 01/10/20 16:46 Klor-Con 10 PO 10 meq BID-WM JUAN ALBERTO Administration Senna/Docusate Sodium 2 tab 01/08/20 18:12 01/10/20 13:14 Senokot S PO 2 tab BID PRN Administration Constipation Tramadol HCl 50 mg 01/09/20 21:00 01/10/20 08:47 Ultram PO 50 mg BID JUAN ALBERTO Administration - Exam General Appearance: NAD, awake alert Neck: supple, symmetric, no JVD, no thyromegaly, no lymphadenopathy, no carotid bruit Heart: RRR, no murmur, no gallops, no rubs, normal peripheral pulses Respiratory: CTAB, no wheezes, no rales, no ronchi, normal chest expansion, no tachypnea, normal percussion Gastrointestinal: soft, non-tender, non-distended, normal bowel sounds, no palpable masses, no hepatomegaly, no splenomegaly, no bruit Extremities: no cyanosis, no clubbing, no edema Skin: normal turgor Neurological: no focal deficits Musculoskeletal: normal tone, normal strength, no muscle wasting Psychiatric: normal affect, normal behavior, A&O x 3 Hosp A/P (1) Pneumonia Code(s): J18.9 - PNEUMONIA, UNSPECIFIED ORGANISM Status: Acute (2) S/P CABG x 2 Code(s): Z95.1 - PRESENCE OF AORTOCORONARY BYPASS GRAFT Status: Acute (3) Sepsis Code(s): A41.9 - SEPSIS, UNSPECIFIED ORGANISM Status: Acute (4) GERD (gastroesophageal reflux disease) Code(s): K21.9 - GASTRO-ESOPHAGEAL REFLUX DISEASE WITHOUT ESOPHAGITIS Status: Chronic (5) PTSD (post-traumatic stress disorder) Code(s): F43.10 - POST-TRAUMATIC STRESS DISORDER, UNSPECIFIED Status: Chronic - Plan Pneumonia: Long discussion with patient's . Certainly does appear that he has some evidence of pneumonia on his CT scan revealing some compression and atelectasis with possible infiltrate in both bases. He has leukocytosis with a left shift as well as fever. No other evidence of infection. We will continue to cover for hospital-acquired pneumonia with vancomycin and cefepime. Follow-up blood cultures. Atrial fibrillation: Patient had A. fib following his bypass. He was placed on amiodarone and digoxin. Will likely need to resume his amiodarone at this point. He was on a taper. We will ensure cardiology is back involved with his case. Congestive heart failure: Is some evidence of mild decompensated heart failure. May be transient following his bypass surgery. Echo results were pending. Pericardial effusion: Subsequently received results of the patient's echocardiogram which revealed a moderate to large pericardial effusion. There is no RV collapse. Made Dr. Saucedo aware. We will continue with diuresis. Overall the heart appears to be functioning normally with an EF of 55 to 60%.
[2020-01-10] MEDS: ALPRAZolam 0.5 MG TAB PO SCH (20:27)
[2020-01-10] MEDS: Atorvastatin Calcium 40 MG TAB PO SCH (20:27)
--- NOTE | 2020-01-10 23:43 | CON ---
DATE OF CONSULTATION: 01/10/2020 REASON FOR CONSULTATION: Recent surgery, recent atrial fibrillation. The patient has been found to have pericardial effusion. HISTORY OF PRESENT ILLNESS: Mr. Holt sees Dr. Jonnie Lr as an outpatient, but underwent recent coronary artery bypass grafting. It was done successfully by Dr. Anatoly Saucedo. The patient came back to the hospital complaining of pain in the mid back. The patient, therefore, was readmitted for further evaluation. PAST SURGICAL HISTORY: He had bypass x2, internal mammary to 1 mm proximal LAD and a vein graft to a diagonal. The patient did well with the surgery, did have some atrial arrhythmias postoperatively and was placed on amiodarone. MEDICATIONS: At home, the patient was on: 1. Amiodarone is listed as 400 mg three times a day. 2. Aspirin 81 mg a day. 3. Digoxin 0.125 mg a day. REVIEW OF SYSTEMS: CONSTITUTIONAL: No significant weight gain or loss. VISION: No changes. HEARING: No changes. PULMONARY: No cough or wheezing. GASTROINTESTINAL: No nausea, vomiting, or diarrhea. SKIN: No rashes. ALLERGIES: TO HYDROCODONE. SOCIAL HISTORY: He has a spouse, who is very attentive to him and very helpful. PHYSICAL EXAMINATION: VITAL SIGNS: Blood pressure 114/56, pulse 80 and it is regular. LUNGS: Clear. CARDIAC: Normal S1 and normal S2, somewhat distant. I do not hear a murmur, rub, or gallop. ABDOMEN: Soft and nontender. EXTREMITIES: Warm and dry. No clubbing or cyanosis. There is no edema. PERTINENT LABORATORY DATA: Hemoglobin is 9.3. EKG, sinus rhythm with previous anterior infarct. ASSESSMENT: 1. Recent bypass surgery. 2. Apparently, the patient had atrial fibrillation, postoperatively on amiodarone. PLAN: 1. We will stop digoxin at this time. 2. Reduce amiodarone to 200 mg once a day. 3. I will review the echocardiogram to see whether drainage of the effusion would be indicated. Job ID: [id number]
[2020-01-11] MEDS: Cefepime 2 GM in Sodium Chloride 0.9% 100 ML IVPB SCH ×2 (04:54→16:01)
[2020-01-11] MEDS: Vancomycin 1 GM in Premix Bag 1 BAG IVPB SCH ×3 (05:26→22:33)
[2020-01-11 06:00] LABS: Vancomycin, Trough 19.3 ug/mL
[2020-01-11] MEDS ORDERED: Metolazone 5 MG TAB PO SCH (06:30)
[2020-01-11] MEDS: Aspirin 325 mg Enteric Coated Tablet PO SCH (07:51)
[2020-01-11] MEDS: Famotidine 20 MG TAB PO SCH ×2 (07:51→20:58)
[2020-01-11] MEDS: Digoxin 0.125 MG TAB PO SCH (07:51)
[2020-01-11] MEDS: FLUoxetine HCl 20 MG CAP PO SCH (07:51)
[2020-01-11] MEDS: Potassium Chloride 10 MEQ TAB PO SCH ×2 (07:51→16:02)
[2020-01-11] MEDS: Furosemide 40 MG TAB PO SCH ×2 (07:52→14:47)
[2020-01-11] MEDS: traMADol HCl 50 MG TAB PO SCH ×2 (07:53→20:59)
[2020-01-11] MEDS: Enoxaparin Sodium 40 MG/0.4 ML SYRINGE SC SCH (07:53)
[2020-01-11] MEDS ORDERED: Amiodarone 200 MG TAB PO SCH (09:00)
[2020-01-11] MEDS ORDERED: Furosemide 20 MG TAB PO SCH (09:00)
--- NOTE | 2020-01-11 10:04 | PDOC.HOSPP ---
- Subjective Encounter Date: 01/11/20 Subjective: Patient says he is feeling fine. Feels like he is breathing comfortably. Denies any chest pain. He does have a little bit of a cough. Patient's is in the room. She states she stayed with him until 7 PM last night. When she came back this morning she felt like he was not as good as he was when she left. Primarily she felt like mentally he was not completely with it. He is back to his baseline now according to her. She reports that when she talked him on the phone this morning he was having a coughing spell that was fairly harsh. He is not using his incentive spirometer very often. - Objective Vital Signs & Weight: Vital Signs (12 hours) Temp Pulse Resp BP Pulse Ox 01/11/20 07:51 87 01/11/20 07:42 98.2 F 87 24 H 115/60 92 L 01/11/20 03:23 98.8 F 87 18 128/59 L 94 L 01/10/20 23:42 89 20 93 L Weight Weight 153 lb 6.4 oz I&O: 01/10/20 01/11/20 01/12/20 06:59 06:59 06:59 Intake Total 1050 1500 Output Total 685 2110 Balance 365 -610 Result Diagrams: 01/10/20 04:15 01/10/20 04:15 Hospitalist ROS - Medication Medications: Active Medications Generic Name Dose Route Start Last Admin Trade Name Freq PRN Reason Stop Dose Admin Acetaminophen 650 mg 01/08/20 18:12 01/10/20 13:14 Tylenol PO 650 mg Q4H PRN Administration Headache/Fever/Mild Pain (1-3) Alprazolam 0.5 mg 01/08/20 21:00 01/10/20 20:27 Xanax PO 0.5 mg HS JUAN ALBERTO Administration Amiodarone HCl 200 mg 01/11/20 09:00 01/11/20 07:52 Cordarone PO 200 mg DAILY JUAN ALBERTO Administration Aspirin 325 mg 01/09/20 09:00 01/11/20 07:51 Ecotrin PO 325 mg DAILY JUAN ALBERTO Administration Atorvastatin Calcium 40 mg 01/08/20 21:00 01/10/20 20:27 Lipitor PO 40 mg HS JUAN ALBERTO Administration Digoxin 0.125 mg 01/09/20 09:00 01/11/20 07:51 Lanoxin PO 0.125 mg DAILY JUAN ALBERTO Administration Enoxaparin Sodium 40 mg 01/09/20 09:00 01/11/20 07:53 Lovenox SC 40 mg 0900 JUAN ALBERTO Administration Famotidine 20 mg 01/08/20 21:00 01/11/20 07:51 Pepcid PO 20 mg BID JUAN ALBERTO Administration Fluoxetine HCl 20 mg 01/09/20 09:00 01/11/20 07:51 Prozac PO 20 mg DAILY JUAN ALBERTO Administration Furosemide 40 mg 01/11/20 09:00 01/11/20 07:52 Lasix PO 40 mg 0900,1400 JUAN ALBERTO Administration Cefepime HCl 2 gm/ Sodium 100 mls @ 200 mls/hr 01/09/20 04:00 01/11/20 04:54 Chloride IVPB 100 mls 0400,1600 JUAN ALBERTO Administration Vancomycin HCl 1 gm/ Device 200 mls @ 200 mls/hr 01/10/20 06:00 01/11/20 05: 26 IVPB 200 mls Q8HR JUAN ALBERTO Administration Morphine Sulfate 2 mg 01/09/20 15:05 01/10/20 14:58 Morphine SLOW IVP 2 mg Q4H PRN Administration Moderate to Severe Pain (6-10) Pantoprazole Sodium 40 mg 01/08/20 21:00 01/11/20 07:52 Protonix PO 40 mg BID JUAN ALBERTO Administration Potassium Chloride 10 meq 01/09/20 08:00 01/11/20 07:51 Klor-Con 10 PO 10 meq BID-WM JUAN ALBERTO Administration Senna/Docusate Sodium 2 tab 01/08/20 18:12 01/10/20 13:14 Senokot S PO 2 tab BID PRN Administration Constipation Tramadol HCl 50 mg 01/09/20 21:00 01/11/20 07:53 Ultram PO 50 mg BID JUAN ALBERTO Administration - Exam General Appearance: NAD, awake alert Heart: RRR, no murmur, no gallops, no rubs, normal peripheral pulses Respiratory: no rales (Bibasilar rales. Worse on the right base.) Gastrointestinal: soft, non-tender, non-distended, normal bowel sounds, no palpable masses, no hepatomegaly, no splenomegaly, no bruit Extremities: no cyanosis, no clubbing, no edema Extremities - other findings: Left thigh incisions look healthy Skin: normal turgor Neurological: no focal deficits Musculoskeletal: generalized weakness Psychiatric: normal affect (Slightly flat.) Hosp A/P (1) Pneumonia Code(s): J18.9 - PNEUMONIA, UNSPECIFIED ORGANISM Status: Acute (2) S/P CABG x 2 Code(s): Z95.1 - PRESENCE OF AORTOCORONARY BYPASS GRAFT Status: Acute (3) Sepsis Code(s): A41.9 - SEPSIS, UNSPECIFIED ORGANISM Status: Acute (4) GERD (gastroesophageal reflux disease) Code(s): K21.9 - GASTRO-ESOPHAGEAL REFLUX DISEASE WITHOUT ESOPHAGITIS Status: Chronic (5) PTSD (post-traumatic stress disorder) Code(s): F43.10 - POST-TRAUMATIC STRESS DISORDER, UNSPECIFIED Status: Chronic (6) Pericardial effusion Code(s): I31.3 - PERICARDIAL EFFUSION (NONINFLAMMATORY) Status: Acute (7) Suspected COVID-19 virus infection Code(s): Z20.828 - CONTACT W AND EXPOSURE TO OTH VIRAL COMMUNICABLE DISEASES Status: Ruled-out - Plan Pneumonia: Long discussion with patient's . Chest x-ray today confirms bilateral patchy infiltrates consistent with pneumonia. Fever has improved. We will continue to cover for hospital-acquired pneumonia with vancomycin and cefepime. Follow-up blood cultures. He is strongly encouraged to increase use of the incentive spirometer. He does appear to have some component of atelectasis with this. Currently appears to be breathing comfortably with good oxygen saturations on room air. Atrial fibrillation: Patient had A. fib following his bypass. He was placed on amiodarone and digoxin. Appreciate cardiology input. Digoxin has been discontinued and he is back on low-dose amiodarone. Congestive heart failure: Is some evidence of mild decompensated heart failure. May be transient following his bypass surgery. Normal ejection fraction and cardiac function on echo. Pericardial effusion: There is no RV collapse. Dr. Saucedo aware. We will continue with diuresis. Does not appear to be significantly symptomatic at this point. PTSD: Patient's reports that he has "100% PTSD". She is requesting to stay with the patient in spite of the visiting our restrictions currently in place. Discussed with the charge nurse. I have no problem with that.
[2020-01-11] MEDS: Acetaminophen 325 MG TAB PO PRN (10:38)
[2020-01-11 11:48] LABS: #Eosinphils 0.2 thou/uL (0.0-0.7); #Monocytes 0.8 thou/uL (0.11-0.59); #Neutrophils 10.4 thou/uL (1.40-6.50); %Basophils 0.1 % (0.0-1.0); %Eosinophils 1.4 % (0.0-10.0); %Lymphocytes 8.2 % (21.0-51.0); %Monocytes 6.3 % (0.0-10.0); %Neutrophils 84.1 % (42.0-75.0); Hemoglobin 10.2 g/dL (14.0-18.0); Mean Corpuscular HGB CONC 31.8 g/dL (32.0-36.0); Mean Corpuscular Hemoglobin 29.7 pg (27.0-31.0); Mean Corpuscular Volume 93.4 fL (78.0-98.0); Mean Platelet Volume 8.3 fL (7.4-10.4); Platelet Count 130 thou/uL (130-400); RBC Distribution Width 13.9 % (11.5-14.5); Red Blood Cell (RBC) Count 3.44 mill/uL (4.70-6.10); White Blood Cell (WBC) Count 12.4 thou/uL (4.8-10.8)
[2020-01-11] MEDS ORDERED: methylPREDNISolone Sod Succ 40 MG VIAL IVP SCH ×2 (12:00)
[2020-01-11 12:14] LABS: Anion Gap 11 mmol/L (10-20); BUN (Urea Nitrogen) 10 mg/dL (8.4-25.7); Calc. Creatinine Clearance 71 mL/min (70-130); Calcium 9.1 mg/dL (7.8-10.44); Carbon Dioxide 29 mmol/L (23-31); Chloride 96 mmol/L (98-107); Estimated GFR-MDRD 85; Glucose 145 mg/dL (83-110); Potassium 3.1 mmol/L (3.5-5.1); Sodium 133 mmol/L (136-145)
--- NOTE | 2020-01-11 13:47 | CON ---
DATE OF CONSULTATION: 01/11/2020 CONSULTING PHYSICIAN: Kelton Jc MD REASON FOR CONSULTATION: Pulmonary infiltrates. HISTORY OF PRESENT ILLNESS: The patient is a 74-year-old male, who underwent coronary artery bypass grafting surgery a couple of weeks ago. He has done poorly after surgery in terms of getting around and performing activities of daily living. His says he has had a low-grade fever at home. He presented to the hospital with bilateral subtle pulmonary infiltrates. He also has a fairly substantial pericardial effusion without tamponade physiology. He left the hospital on amiodarone 400 mg t.i.d. on 01/03/2020, so he has been on that medicine for about 5 days. He has had a dry cough. No overt congestion. Otherwise, he is short of breath with minimal exertion. PAST MEDICAL HISTORY: 1. Coronary artery disease. 2. Paroxysmal atrial fibrillation. PAST SURGICAL HISTORY: Coronary artery bypass grafting surgery - two-vessel bypass. MEDICATIONS: Prior to admission; 1. Amiodarone 400 mg t.i.d. 2. Aspirin 81 mg daily. 3. Digoxin 0.125 mg daily. ALLERGIES: HYDROCODONE. REVIEW OF SYSTEMS: Twelve-point review of systems is otherwise negative. PHYSICAL EXAMINATION: VITAL SIGNS: Temperature 98.2, pulse 87, respirations 20, O2 saturation 92% on room air, and blood pressure 115/60. GENERAL: The patient is pleasant, appears in no acute distress. HEENT: Unremarkable. NECK: No adenopathy or JVD. LUNGS: With bilateral crackles at the bases. CARDIAC: S1 and S2. Regular. ABDOMEN: Soft and nontender. EXTREMITIES: No clubbing, cyanosis, or edema. DIAGNOSTIC DATA: I have reviewed his chest x-rays, which showed some worsening pulmonary infiltrates. His COVID test was negative. White blood cell count 16.3, hematocrit 29.8, and platelet count 143. Sodium 136, potassium 3.5, chloride 102, CO2 of 26, BUN 12, creatinine 0.8, and glucose 96. ASSESSMENT: Bilateral infiltrates and large pericardial effusion in the setting of recent coronary artery bypass grafting surgery. Additionally, the patient has been on high dose of amiodarone for treatment of paroxysmal atrial fibrillation. Differential diagnosis in this case includes nosocomial pneumonia, pulmonary edema, adrenal insufficiency, amiodarone lung toxicity, and Kana's type syndrome. RECOMMENDATIONS: 1. I will continue IV antibiotics as you are doing. 2. Empirically place the patient on steroids. 3. Check cortisol level. 4. Consider pericardial drainage if he does not get better on the steroids and antibiotics. 5. Discontinue amiodarone. Job ID: [id number]
[2020-01-11] MEDS: Atorvastatin Calcium 40 MG TAB PO SCH (20:58)
[2020-01-11] MEDS: methylPREDNISolone Sod Succ 40 MG VIAL IVP SCH (21:03)
[2020-01-11] MEDS: ALPRAZolam 0.5 MG TAB PO SCH (22:33)
[2020-01-12] MEDS: methylPREDNISolone Sod Succ 40 MG VIAL IVP SCH ×4 (01:46→20:32)
[2020-01-12] MEDS: Cefepime 2 GM in Sodium Chloride 0.9% 100 ML IVPB SCH ×2 (03:29→17:24)
[2020-01-12 04:46] LABS: Anion Gap 16 mmol/L (10-20); BUN (Urea Nitrogen) 17 mg/dL (8.4-25.7); Calc. Creatinine Clearance 69 mL/min (70-130); Calcium 9.8 mg/dL (7.8-10.44); Carbon Dioxide 30 mmol/L (23-31); Chloride 92 mmol/L (98-107); Estimated GFR-MDRD 82; Glucose 142 mg/dL (83-110); Potassium 3.5 mmol/L (3.5-5.1); Sodium 134 mmol/L (136-145)
[2020-01-12 04:52] LABS: #Lymphocytes 0.5 thou/uL (1.20-3.40); #Monocytes 0.5 thou/uL (0.11-0.59); #Neutrophils 10.9 thou/uL (1.40-6.50); %Basophils 0.3 % (0.0-1.0); %Eosinophils 0.1 % (0.0-10.0); %Lymphocytes 4.1 % (21.0-51.0); %Neutrophils 91.5 % (42.0-75.0); Hemoglobin 11.2 g/dL (14.0-18.0); Mean Corpuscular HGB CONC 31.8 g/dL (32.0-36.0); Mean Corpuscular Hemoglobin 29.8 pg (27.0-31.0); Mean Corpuscular Volume 93.7 fL (78.0-98.0); Mean Platelet Volume 8.4 fL (7.4-10.4); Platelet Count 158 thou/uL (130-400); RBC Distribution Width 13.9 % (11.5-14.5); Red Blood Cell (RBC) Count 3.75 mill/uL (4.70-6.10); White Blood Cell (WBC) Count 11.9 thou/uL (4.8-10.8)
[2020-01-12] MEDS: Vancomycin 1 GM in Premix Bag 1 BAG IVPB SCH ×3 (05:15→20:32)
[2020-01-12] MEDS: traMADol HCl 50 MG TAB PO SCH ×2 (08:22→20:31)
[2020-01-12] MEDS: Aspirin 325 mg Enteric Coated Tablet PO SCH (08:23)
[2020-01-12] MEDS: FLUoxetine HCl 20 MG CAP PO SCH (08:23)
[2020-01-12] MEDS: Famotidine 20 MG TAB PO SCH (08:23)
[2020-01-12] MEDS: Enoxaparin Sodium 40 MG/0.4 ML SYRINGE SC SCH (08:23)
[2020-01-12] MEDS: Potassium Chloride 10 MEQ TAB PO SCH ×2 (08:23→17:24)
--- NOTE | 2020-01-12 09:41 | CT ---
Exam: CT angiogram of the chest HISTORY: Pleural effusion. Pericardial effusion. Open heart surgery 2 weeks ago. Chest pain. COMPARISON: None TECHNIQUE: CT angiogram of the chest is performed in the axial plane. Three-dimensional reformatted i mages are submitted for interpretation FINDINGS: Mediastinum: Expected postoperative changes in the anterior mediastinum. HEART: Normal heart size. Moderate pericardial fluid. Aorta: No aneurysm or dissection Upper solid abdominal viscera: No abnormality enhancement. Hiatal hernia is noted. Hyperdense materia l in the stomach is presumed to represent ingested capsule. Trachea and central bronchi: Patent Pleural spaces: Small to moderate right and small left pleural effusion. Consolidation of the lung ba ses likely representing aspiration, atelectasis or pneumonia. Lung parenchyma: Bibasilar consolidation as described above. Additional linear and patchy groundglass opacities predominantly in the lower lobes, lingula and right upper lobe. Pneumothorax: None Osseous structures: No lytic or blastic lesions Pulmonary arteries:Adequate contrast opacification of pulmonary arterial system to the level segmenta l arteries. There are filling defects involving the right lower lobe pulmonary artery extending into the segmental and subsegmental branches. There is asymmetric decreased enhancement involving the right lower lobe suggesting a component of lung parenchymal ischemia or possible infarction. IMPRESSION: 1. Right lower lobe pulmonary artery emboli. Decreased enhancement in the right lung parenchyma likel y representing parenchymal ischemia or infarct. 2. Pleural effusion and parenchymal changes of the lungs as described above. 3. Results study discussed with Dr. Mott 01/12/2020 at 9:33 AM Code CR
--- NOTE | 2020-01-12 09:48 | RAD ---
CHEST 1 VIEW: INDICATION: History of pneumonia. COMPARISON: Prior exam dated 01/10/2020. FINDINGS: Cardiomegaly and pulmonary vascular congestion persist. There is improvement in the airspace densiti es involving both lungs when compared to the recent prior dated 01/10/2020. Bilateral pleural effusio ns remain. IMPRESSION: 1. Improvement in the bilateral airspace opacities seen from the prior examination. 2. Persistent cardiomegaly and mild pulmonary vascular congestion and tiny bilateral pleural effusio ns. POS: [facility]
[2020-01-12] MEDS: Furosemide 40 MG TAB PO SCH ×2 (09:56→14:02)
[2020-01-12] MEDS: Apixaban 5 MG TAB PO SCH ×2 (09:56→20:31)
--- NOTE | 2020-01-12 09:59 | PRG ---
DATE OF SERVICE: 01/12/2020 SUBJECTIVE: The patient isunchanged from yesterday. He desaturated last night according to the patient's . OBJECTIVE: VITAL SIGNS: On exam, temperature 97.8, pulse 70, respiratory rate is 18, O2 saturation 94% on 2 L, and blood pressure 123/76. HEENT: Unremarkable. NECK: No adenopathy or JVD. LUNGS: Clear. CARDIAC: Muffled heart sounds. ABDOMEN: Soft. EXTREMITIES: No edema. IMAGING STUDIES: I reviewed his CT of the chest and looking in there, I see some vascular infiltrates, but I am also suspicious that he has pulmonary emboli, particularly on the right side. I am awaiting the radiologist's final report on that. ASSESSMENT: 1. Possible pulmonary embolism. 2. Doubt amiodarone lung toxicity or Kana syndrome given the findings. PLAN: We will discuss with Radiology, probably proceed with full anticoagulation, if scanned positive. Job ID: [id number]
[2020-01-12] MEDS ORDERED: Iopamidol-370 76% 500 ML 1 ML ONE (11:16)
--- NOTE | 2020-01-12 17:03 | PDOC.HOSPP ---
- Subjective Encounter Date: 01/12/20 Subjective: Again the patient says he is doing well. He denies any specific complaints today. He did eat a little bit of breakfast this morning. Says his appetite was a little better for the first time in a long time. - Objective Vital Signs & Weight: Vital Signs (12 hours) Temp Pulse Resp BP Pulse Ox 01/12/20 16:00 97.3 F L 80 20 128/76 97 01/12/20 11:15 97.8 F 71 16 113/65 95 01/12/20 07:17 97.8 F 78 18 123/76 94 L 01/12/20 07:15 94 L Weight Weight 153 lb 6.4 oz I&O: 01/11/20 01/12/20 01/13/20 06:59 06:59 06:59 Intake Total 1500 2220 Output Total 2110 1400 Balance -610 820 Result Diagrams: 01/12/20 04:07 01/12/20 04:07 Hospitalist ROS - Medication Medications: Active Medications Generic Name Dose Route Start Last Admin Trade Name Freq PRN Reason Stop Dose Admin Acetaminophen 650 mg 01/08/20 18:12 01/11/20 10:38 Tylenol PO 650 mg Q4H PRN Administration Headache/Fever/Mild Pain (1-3) Alprazolam 0.5 mg 01/08/20 21:00 01/11/20 22:33 Xanax PO 0.5 mg HS JUAN ALBERTO Administration Apixaban 10 mg 01/12/20 09:00 01/12/20 09:56 Eliquis PO 10 mg BID JUAN ALBERTO Administration Aspirin 325 mg 01/09/20 09:00 01/12/20 08:23 Ecotrin PO 325 mg DAILY JUAN ALBERTO Administration Atorvastatin Calcium 40 mg 01/08/20 21:00 01/11/20 20:58 Lipitor PO 40 mg HS JUAN ALBERTO Administration Fluoxetine HCl 20 mg 01/09/20 09:00 01/12/20 08:23 Prozac PO 20 mg DAILY JUAN ALBERTO Administration Furosemide 40 mg 01/11/20 09:00 01/12/20 14:02 Lasix PO 40 mg 0900,1400 JUAN ALBERTO Administration Cefepime HCl 2 gm/ Sodium 100 mls @ 200 mls/hr 01/09/20 04:00 01/12/20 03:29 Chloride IVPB 100 mls 0400,1600 JUAN ALBERTO Administration Vancomycin HCl 1 gm/ Device 200 mls @ 200 mls/hr 01/10/20 06:00 01/12/20 14: 03 IVPB 200 mls Q8HR JUAN ALBERTO Administration Methylprednisolone Sodium Succinate 40 mg 01/11/20 20:00 01/12/20 14:02 Solu-Medrol IVP 40 mg 0200,0800,1400,2000 JUAN ALBERTO Administration Morphine Sulfate 2 mg 01/09/20 15:05 01/10/20 14:58 Morphine SLOW IVP 2 mg Q4H PRN Administration Moderate to Severe Pain (6-10) Pantoprazole Sodium 40 mg 01/08/20 21:00 01/12/20 08:23 Protonix PO 40 mg BID JUAN ALBERTO Administration Potassium Chloride 10 meq 01/09/20 08:00 01/12/20 08:23 Klor-Con 10 PO 10 meq BID-WM JUAN ALBERTO Administration Senna/Docusate Sodium 2 tab 01/08/20 18:12 01/10/20 13:14 Senokot S PO 2 tab BID PRN Administration Constipation Tramadol HCl 50 mg 01/09/20 21:00 01/12/20 08:22 Ultram PO 50 mg BID JUAN ALBERTO Administration - Exam General Appearance: NAD, awake alert Heart: RRR, no murmur, no gallops, no rubs, normal peripheral pulses Respiratory - other findings: Bibasilar rales. Worse on the right. Gastrointestinal: soft, non-tender, non-distended, normal bowel sounds, no palpable masses, no hepatomegaly, no splenomegaly, no bruit Extremities: no cyanosis, no clubbing, no edema Skin: normal turgor Neurological: no focal deficits Musculoskeletal: normal tone Psychiatric: normal affect, normal behavior, A&O x 3 Hosp A/P (1) Pneumonia Code(s): J18.9 - PNEUMONIA, UNSPECIFIED ORGANISM Status: Acute (2) S/P CABG x 2 Code(s): Z95.1 - PRESENCE OF AORTOCORONARY BYPASS GRAFT Status: Acute (3) Sepsis Code(s): A41.9 - SEPSIS, UNSPECIFIED ORGANISM Status: Acute (4) GERD (gastroesophageal reflux disease) Code(s): K21.9 - GASTRO-ESOPHAGEAL REFLUX DISEASE WITHOUT ESOPHAGITIS Status: Chronic (5) PTSD (post-traumatic stress disorder) Code(s): F43.10 - POST-TRAUMATIC STRESS DISORDER, UNSPECIFIED Status: Chronic (6) Pericardial effusion Code(s): I31.3 - PERICARDIAL EFFUSION (NONINFLAMMATORY) Status: Acute (7) Suspected COVID-19 virus infection Code(s): Z20.828 - CONTACT W AND EXPOSURE TO OTH VIRAL COMMUNICABLE DISEASES Status: Ruled-out - Plan Pneumonia: Patient had fever, leukocytosis, patchy infiltrates on x-ray consistent with pneumonia. Continue with Vanco and cefepime. Pulmonary embolus: Patient had CT scan today primarily to reassess his pericardial effusion. However it did reveal right lower lobe pulmonary embolus. He has been started on Eliquis. Atrial fibrillation: Patient had A. fib following his bypass. He was placed on amiodarone and digoxin. Appreciate cardiology input. Amiodarone has now been discontinued. Patient will be on Eliquis for the pulmonary embolus. Congestive heart failure: Is some evidence of mild decompensated heart failure. May be transient following his bypass surgery. Normal ejection fraction and cardiac function on echo. Pericardial effusion: There is no RV collapse. Dr. Saucedo aware. We will continue with diuresis. Does not appear to be significantly symptomatic at this point. PTSD: Patient's reports that he has "100% PTSD". She is requesting to stay with the patient in spite of the visiting our restrictions currently in place. Discussed with the charge nurse. I have no problem with that.
--- NOTE | 2020-01-12 20:04 | PRG ---
DATE OF SERVICE: This morning, the patient had desaturation episodes and it was still very unclear to me what was going on from a physiopathologic standpoint. He does not behave like he had a large pericardial effusion, which is in contradiction to the echocardiographic findings. I ordered a CT angio of his chest. This shows minimal pericardial fluid and minimal pleural fluid. He does have a right lower lobe pulmonary embolus and questionable pulmonary infarct. Dr. Mott and I discussed the patient and he has been placed on Eliquis. With his current low level of activity, I continue to be concerned about his ability to recover from his bypass surgery, but we have had a long discussion regarding this and he is willing to continue to work and try. Job ID: [id number]
[2020-01-12] MEDS: ALPRAZolam 0.5 MG TAB PO SCH (20:31)
[2020-01-12] MEDS: Atorvastatin Calcium 40 MG TAB PO SCH (20:32)
[2020-01-13] MEDS ORDERED: Melatonin 3 MG TAB PO PRN (00:30)
[2020-01-13] MEDS: methylPREDNISolone Sod Succ 40 MG VIAL IVP SCH ×4 (01:17→21:58)
[2020-01-13] MEDS: Cefepime 2 GM in Sodium Chloride 0.9% 100 ML IVPB SCH ×2 (04:35→16:30)
[2020-01-13] MEDS: Vancomycin 1 GM in Premix Bag 1 BAG IVPB SCH ×2 (05:18→14:30)
[2020-01-13] MEDS: Apixaban 5 MG TAB PO SCH ×2 (09:32→21:57)
[2020-01-13] MEDS: FLUoxetine HCl 20 MG CAP PO SCH (09:33)
[2020-01-13] MEDS: Potassium Chloride 10 MEQ TAB PO SCH ×2 (09:33→16:30)
[2020-01-13] MEDS: Furosemide 40 MG TAB PO SCH (09:33)
[2020-01-13] MEDS: traMADol HCl 50 MG TAB PO SCH ×2 (09:33→21:56)
[2020-01-13] MEDS: Aspirin 325 mg Enteric Coated Tablet PO SCH (09:33)
[2020-01-13] MEDS ORDERED: Aspirin 325 mg Enteric Coated Tablet PO SCH (10:59)
--- NOTE | 2020-01-13 11:12 | PRG ---
DATE OF SERVICE: 01/13/2020 SUBJECTIVE: The patient is about the same. OBJECTIVE: VITAL SIGNS: Temperature 96.9, pulse 80, respirations 18, saturations 93% on room air, blood pressure 117/69. HEENT: Unremarkable. NECK: No adenopathy or JVD. CHEST: Clear anteriorly. CARDIAC: S1 and S2. Slightly muffled heart sounds. ABDOMEN: Soft. EXTREMITIES: No edema. ASSESSMENT: 1. Pulmonary embolism. 2. Pericardial effusion. PLAN: I discussed with Dr. Saucedo. He has okayed anticoagulation. Needs to be on Eliquis 10 mg b.i.d. for the first 7 days, then 5 mg b.i.d. thereafter, and do approximately 6 months of therapy. He needs to get up with physical therapy. Once he is able to accomplish what he needs to do to go home, he can be discharged. Job ID: [id number]
[2020-01-13] MEDS ORDERED: Aspirin 81 mg Enteric Coated Tablet PO SCH (11:15)
[2020-01-13 14:23] LABS: Vancomycin, Trough 35.8 ug/mL
[2020-01-13] MEDS ORDERED: Vancomycin 1 GM in Premix Bag 1 BAG IVPB SCH (14:45)
--- NOTE | 2020-01-13 18:20 | PDOC.HOSPP ---
- Subjective Encounter Date: 01/13/20 Subjective: Feels well. Got up and took a shower this morning. Tolerated it well. Sats on room air after the shower were 94%. - Objective Vital Signs & Weight: Vital Signs (12 hours) Temp Pulse Resp BP Pulse Ox 01/13/20 15:49 97.7 F 71 12 118/65 93 L 01/13/20 11:23 97.3 F L 71 13 117/67 93 L 01/13/20 08:00 96.9 F L 70 18 117/69 93 L Weight Weight 148 lb 1.6 oz I&O: 01/12/20 01/13/20 01/14/20 06:59 06:59 06:59 Intake Total 2220 1270 700 Output Total 1400 1175 Balance 820 95 700 Result Diagrams: 01/12/20 04:07 01/12/20 04:07 Hospitalist ROS - Medication Medications: Active Medications Generic Name Dose Route Start Last Admin Trade Name Freq PRN Reason Stop Dose Admin Acetaminophen 650 mg 01/08/20 18:12 01/11/20 10:38 Tylenol PO 650 mg Q4H PRN Administration Headache/Fever/Mild Pain (1-3) Alprazolam 0.5 mg 01/08/20 21:00 01/12/20 20:31 Xanax PO 0.5 mg HS JUAN ALBERTO Administration Apixaban 10 mg 01/12/20 09:00 01/13/20 09:32 Eliquis PO 10 mg BID JUAN ALBERTO Administration Atorvastatin Calcium 40 mg 01/08/20 21:00 01/12/20 20:32 Lipitor PO 40 mg HS JUAN ALBERTO Administration Fluoxetine HCl 20 mg 01/09/20 09:00 01/13/20 09:33 Prozac PO 20 mg DAILY JUAN ALBERTO Administration Cefepime HCl 2 gm/ Sodium 100 mls @ 200 mls/hr 01/09/20 04:00 01/13/20 16:30 Chloride IVPB 100 mls 0400,1600 JUAN ALBERTO Administration Melatonin 3 mg 01/13/20 00:30 01/13/20 01:17 Melatonin PO 3 mg HS PRN Administration Insomnia Methylprednisolone Sodium Succinate 40 mg 01/11/20 20:00 01/13/20 14:32 Solu-Medrol IVP 40 mg 0200,0800,1400,2000 JUAN ALBERTO Administration Morphine Sulfate 2 mg 01/09/20 15:05 01/10/20 14:58 Morphine SLOW IVP 2 mg Q4H PRN Administration Moderate to Severe Pain (6-10) Pantoprazole Sodium 40 mg 01/08/20 21:00 01/13/20 09:33 Protonix PO 40 mg BID JUAN ALBERTO Administration Potassium Chloride 10 meq 01/09/20 08:00 01/13/20 16:30 Klor-Con 10 PO 10 meq BID-WM JUAN ALBERTO Administration Senna/Docusate Sodium 2 tab 01/08/20 18:12 01/10/20 13:14 Senokot S PO 2 tab BID PRN Administration Constipation Tramadol HCl 50 mg 01/09/20 21:00 01/13/20 09:33 Ultram PO 50 mg BID JUAN ALBERTO Administration - Exam General Appearance: NAD, awake alert Heart: RRR, no murmur, no gallops, no rubs, normal peripheral pulses Respiratory: rales (Right base.) Gastrointestinal: soft, non-tender, non-distended, normal bowel sounds, no palpable masses, no hepatomegaly, no splenomegaly, no bruit Extremities: no cyanosis, no clubbing, no edema Skin: normal turgor Neurological: no focal deficits Musculoskeletal: generalized weakness Psychiatric: normal affect, normal behavior, A&O x 3 Hosp A/P (1) Pneumonia Code(s): J18.9 - PNEUMONIA, UNSPECIFIED ORGANISM Status: Acute (2) S/P CABG x 2 Code(s): Z95.1 - PRESENCE OF AORTOCORONARY BYPASS GRAFT Status: Acute (3) Sepsis Code(s): A41.9 - SEPSIS, UNSPECIFIED ORGANISM Status: Acute (4) GERD (gastroesophageal reflux disease) Code(s): K21.9 - GASTRO-ESOPHAGEAL REFLUX DISEASE WITHOUT ESOPHAGITIS Status: Chronic (5) PTSD (post-traumatic stress disorder) Code(s): F43.10 - POST-TRAUMATIC STRESS DISORDER, UNSPECIFIED Status: Chronic (6) Pericardial effusion Code(s): I31.3 - PERICARDIAL EFFUSION (NONINFLAMMATORY) Status: Acute (7) Suspected COVID-19 virus infection Code(s): Z20.828 - CONTACT W AND EXPOSURE TO OTH VIRAL COMMUNICABLE DISEASES Status: Ruled-out (8) Pulmonary embolism Code(s): I26.99 - OTHER PULMONARY EMBOLISM WITHOUT ACUTE COR PULMONALE Status : Acute - Plan Pneumonia: Patient had fever, leukocytosis, patchy infiltrates on x-ray consistent with pneumonia. Continue with Vanco and cefepime. Can convert to po's for discharge. Pulmonary embolus: On eliquis. Has some evidence of pulm infarct. Looks stable. Atrial fibrillation: Had transient afib after CABG. Was on amio, but off everything but OAC now. Congestive heart failure: Is some evidence of mild decompensated heart failure. May be transient following his bypass surgery. Normal ejection fraction and cardiac function on echo. Pericardial effusion: There is no RV collapse. CVS following. No intervention indicated. PTSD: Stable. Disposition: Can likely discharge home when he can get up with PT and ambulate well.
[2020-01-13] MEDS: Atorvastatin Calcium 40 MG TAB PO SCH (21:56)
[2020-01-13] MEDS: ALPRAZolam 0.5 MG TAB PO SCH (21:57)
[2020-01-14] MEDS: methylPREDNISolone Sod Succ 40 MG VIAL IVP SCH ×2 (01:50→09:52)
[2020-01-14] MEDS: Cefepime 2 GM in Sodium Chloride 0.9% 100 ML IVPB SCH (04:52)
[2020-01-14] MEDS ORDERED: Furosemide 40 MG TAB PO SCH (09:00)
[2020-01-14] MEDS ORDERED: Aspirin 81 mg Enteric Coated Tablet PO SCH (09:00)
[2020-01-14] MEDS: traMADol HCl 50 MG TAB PO SCH (09:50)
[2020-01-14] MEDS: Potassium Chloride 10 MEQ TAB PO SCH (09:50)
[2020-01-14] MEDS: FLUoxetine HCl 20 MG CAP PO SCH (09:51)
[2020-01-14] MEDS: Apixaban 5 MG TAB PO SCH (09:52)
--- NOTE | 2020-01-14 12:39 | PRG ---
DATE OF SERVICE: 01/14/2020 SUBJECTIVE: The patient states he is breathing better. He has no chest pain at the current time. He has no complications from Eliquis. PHYSICAL EXAMINATION: VITAL SIGNS: Temperature 97.9, pulse 80, respirations 12, saturations 93% on room air, and blood pressure 119/60. HEENT: Unremarkable. NECK: No JVD. CHEST: Clear. CARDIAC: S1, S2. Regular. ABDOMEN: Soft. EXTREMITIES: No edema. LABORATORY DATA: No new labs were recorded for today. ASSESSMENT: 1. Pulmonary embolism. 2. Status post coronary artery bypass grafting surgery. PLAN: I will go ahead and stop the steroids. He needs to continue Eliquis for 6 months. The 10 mg b.i.d. doses should be stopped after 7 days and he should go to 5 mg b.i.d. after that. He is stable for discharge. Job ID: [id number]
[2020-01-14 13:54] LABS: Vancomycin, Random 17.6 ug/mL (See Comment)
--- NOTE | 2020-01-14 13:56 | PDOC.CPN ---
- Subjective Date: 01/14/20 Time: 14:08 Interval history: The pt seen and examined. No overnight events. No cardiac complaints. - Objective Allergies/Adverse Reactions: Allergies Allergy/AdvReac Type Severity Reaction Status Date / Time hydrocodone [From Vicodin] Allergy Mild Verified 01/08/20 20:22 Visit Medications: Current Medications Acetaminophen (Tylenol) 650 mg PO Q4H PRN PRN Reason: Headache/Fever/Mild Pain (1-3) Last Admin: 01/11/20 10:38 Dose: 650 mg Alprazolam (Xanax) 0.5 mg PO HS [facility] Last Admin: 01/13/20 21:57 Dose: 0.5 mg Apixaban (Eliquis) 10 mg PO BID [facility] Last Admin: 01/14/20 09:52 Dose: 10 mg Aspirin (Ecotrin) 81 mg PO DAILY [facility] Last Admin: 01/14/20 09:49 Dose: 81 mg Atorvastatin Calcium (Lipitor) 40 mg PO HS [facility] Last Admin: 01/13/20 21:56 Dose: 40 mg Calcium Carbonate (Tums) 1,000 mg PO Q4H PRN PRN Reason: Heartburn or Indigestion Fluoxetine HCl (Prozac) 20 mg PO DAILY [facility] Last Admin: 01/14/20 09:51 Dose: 20 mg Furosemide (Lasix) 40 mg PO 0900 [facility] Last Admin: 01/14/20 09:50 Dose: 40 mg Cefepime HCl 2 gm/ Sodium (Chloride) 100 mls @ 200 mls/hr IVPB 0400,1600 [facility] Last Admin: 01/14/20 04:52 Dose: 100 mls Vancomycin HCl 1 gm/ Device 200 mls @ 200 mls/hr IVPB .PENDING LEVEL <20 [facility] Melatonin (Melatonin) 3 mg PO HS PRN PRN Reason: Insomnia Last Admin: 01/13/20 01:17 Dose: 3 mg Miscellaneous Medication (Pharmacy To Dose) 1 each IVPB PRN PRN PRN Reason: Pharmacy to dose Morphine Sulfate (Morphine) 2 mg SLOW IVP Q4H PRN PRN Reason: Moderate to Severe Pain (6-10) Last Admin: 01/10/20 14:58 Dose: 2 mg Pantoprazole Sodium (Protonix) 40 mg PO BID [facility] Last Admin: 01/14/20 09:51 Dose: 40 mg Potassium Chloride (Klor-Con 10) 10 meq PO BID-WM [facility] Last Admin: 01/14/20 09:50 Dose: 10 meq Senna/Docusate Sodium (Senokot S) 2 tab PO BID PRN PRN Reason: Constipation Last Admin: 01/10/20 13:14 Dose: 2 tab Sodium Chloride (Flush - Normal Saline) 10 ml IVF Q12HR PRN PRN Reason: Saline Flush Tramadol HCl (Ultram) 50 mg PO BID [facility] Last Admin: 01/14/20 09:50 Dose: 50 mg Vital Signs & Weight: Vital Signs Temp Pulse Pulse Pulse Pulse Resp BP 01/14/20 12:04 97.9 F 70 12 01/14/20 12:00 97.8 F 73 14 01/14/20 11:36 75 77 75 137/71 01/14/20 08:00 01/14/20 03:21 98.0 F 67 18 BP BP BP Pulse Ox 01/14/20 12:04 119/60 92 L 01/14/20 12:00 126/71 94 L 01/14/20 11:36 104/62 126/71 01/14/20 08:00 92 L 01/14/20 03:21 110/61 92 L Weight 148 lb 1.6 oz - Physical Exam General: alert & oriented x3 HEENT: mucus membranes moist Neck: supple neck Cardiac: regular rate and rhythm, S1/S2 Lungs: clear to auscultation, decreased breath sounds Neuro: cranial nerve 2-12 intact, other (KNIK) - Labs Result Diagrams: 01/12/20 04:07 01/12/20 04:07 Troponin/CKMB CK-MB (CK-2) 0.9 ng/mL (0-6.6) 01/08/20 15:34 Troponin I 0.913 ng/mL (< 0.028) H* 01/08/20 15:34 - Telemetry Sinus rhythms and dysrhythmias: sinus rhythm - Assessment/Plan Assessment/Plan: 1. Sepsis - stable with ABX 2. PE - on Eliquis 10mg BID for 7 days and 5 mg BID for 6 months; managed by pond scaler 3. Pericardial effusion - on Lasix 40mg qd 4. CAD with hx of CABG x2 on 12/29/2019 with REGAN-LAD and RSV-diag - asymptomatic; on ASA and Lipitor; not on BBlocker/MONISHA/ARB due to hypotensive; 3. Post op afib - remains in SR; 4. HTN - stable without any BP med 5. HLD - on Statin 6. 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 Hx of Piña's esophagus 8. PTSD/Depression MAR reviewed * From Cardiac standpoint, the pt is stable to d/c home. * The pt will f/u with Dr Lr's office Pt. seen and eval. by me. I agree with the A/P by the LAUNDRY SORTER. Chest clear. RRR No edema gjm
[2020-01-14] MEDS ORDERED: Vancomycin 1 GM in Premix Bag 1 BAG IVPB SCH (15:00)
[2020-01-14 16:58] VITALS: BP 112/56; TEMP 98.3
--- NOTE | 2020-01-15 00:30 | DIS ---
DATE OF ADMISSION: 01/08/2020 DATE OF DISCHARGE: 01/14/2020 REASON FOR HOSPITALIZATION: Shortness of breath. SIGNIFICANT FINDINGS: The patient was found to have healthcare associated pneumonia in addition to acute pulmonary embolism. PROCEDURES PERFORMED AND TREATMENTS RENDERED: The patient was admitted to the medical unit with telemetry for maximum medical therapy, please see full H and P from 01/08/2020 for details. The patient was seen and evaluated by cardiothoracic surgeon, Dr. Saucedo, please see full consultation note from 01/09/2020 for details. Patient was recently postoperative coronary artery bypass grafting by Dr. Saucedo on 12/29/2019, since then he has been more lethargic and sedentary than he should have been. Due to these risk factors, patient was at risk for complications, including pulmonary embolism and healthcare associated pneumonia. The patient was started on appropriate antibiotic therapy, breathing treatments, and steroids. The patient was seen and evaluated by Cardiology, please see full consultation note from Dr. Serna for details. The patient was seen and evaluated by Pulmonology/Critical Care, please see consultation notes and progress notes for details. With a maximum effort of specialists, the patient did have a significant improvement of symptoms. The patient went for CT scan of the chest on 01/12/2020, please see full report for details, this identified with the help of contrast. The patient having a right lower lobe pulmonary artery emboli with decreased enhancement in the right lung parenchymal, likely representing parenchymal ischemia or infarct. The patient also with pleural effusion and parenchymal changes of the lungs, please see full description for details. The patient was placed on appropriate anticoagulation therapy by specialists. With this, the patient had a good improvement of his symptoms and he was weaned off oxygen completely. Patient was able to ambulate and did not require supplemental oxygen to maintain his O2 saturations. The patient was cleared by all specialists on 01/14/2020, and recommended safe for discharge home with home health care. Explicit instructions were given to the patient and his to watch out for red flag symptoms and if those red flag symptoms occur or any other new symptoms, he is to return to hospital for further evaluation. Red flag symptoms include worsening shortness of breath, cough, fever, chills, black in blood or stool, or any other new symptoms and he is immediately recommended to present to the emergency department. The patient and his acknowledged these details and states that they will follow up with primary care physician and all specialists as directed. Prescriptions were sent over to the patient's preferred pharmacy. Cardiomyopathy regimen was adjusted appropriately by school librarian. Oral anticoagulation was selected by specialists. CONDITION ON DISCHARGE: Stable. DISCHARGE MEDICATIONS: Please see full discharge medication list for details with the following new medications. 1. Eliquis 5 mg one tablet p.o. b.i.d., after initial seven day 10 mg b.i.d. dosing. 2. Furosemide 40 mg one tablet p.o. daily. 3. Levaquin 500 mg one tablet p.o. daily. 4. Prednisone taper with 40 mg p.o. daily for three days, followed by 30 mg p.o. daily for three days, followed by 20 mg p.o. daily for three days, followed by 10 mg p.o. daily for three days, then stop. All other home medications were continued without modification. Greater than 39 minutes spent coordinating care and discharge process for this patient. Job ID: [id number]
== END 2020-01-14 17:05 | disposition home health service (06) | DRG 871 ==
LOC: ERS 15:16 → 2SW 20:03 → 2NO 01-09 16:22
PROVIDERS: ADMIT Internal Medicine; ATTEND Internal Medicine
DX: A41.9 Sepsis, unspecified organism (principal); J18.9 Pneumonia, unspecified organism; I26.99 Other pulmonary embolism without acute cor pulmonale; J90 Pleural effusion, not elsewhere classified; Z20.828 Contact with and (suspected) exposure to other viral communicable diseases; K21.9 Gastro-esophageal reflux disease without esophagitis; F43.10 Post-traumatic stress disorder, unspecified; Z96.641 Presence of right artificial hip joint; I25.10 Atherosclerotic heart disease of native coronary artery without angina pectoris; E78.5 Hyperlipidemia, unspecified; F32.9 Major depressive disorder, single episode, unspecified; N20.0 Calculus of kidney; D64.9 Anemia, unspecified; G89.29 Other chronic pain; I48.0 Paroxysmal atrial fibrillation; Z90.49 Acquired absence of other specified parts of digestive tract; Z95.1 Presence of aortocoronary bypass graft; Z79.01 Long term (current) use of anticoagulants
CPT/HCPCS: 36415; 36416; 71045; 71275; 74176; 80048; 80053; 80202; 81001; 82533; 82550; 82553; 82728; 83605; 83615; 83880; 84145; 84484; 85025; 85379; 86140; 87040; 87635; 93005; 93306; 94640; 94760; 96365; 96366; 96375; J0692; J1650; J2270; J2920; J3370; J3490; J7030; J7620; Q9967; U0003

== ENCOUNTER 2022-02-20 13:03 | Outpatient (CLI) | payer MEDICARE, BC | END 2022-02-20 13:04 | disposition home or self-care (01) | LOC: RAD 13:03 | PROVIDERS: ATTEND Internal Medicine Critical Care Medicine | DX: R06.00 Dyspnea, unspecified (principal) | CPT/HCPCS: 71046 ==

== ENCOUNTER 2022-10-30 12:31 | Emergency (ER) | payer MEDICARE, BC ==
[2022-10-30 13:18] LABS: #Lymphocytes 0.8 thou/uL (1.20-3.40); #Monocytes 0.4 thou/uL (0.11-0.59); #Neutrophils 3.2 thou/uL (1.40-6.50); %Eosinophils 0.3 % (0.0-10.0); %Lymphocytes 18.1 % (21.0-51.0); %Monocytes 8.6 % (0.0-10.0); Mean Corpuscular HGB CONC 33.2 g/dL (32.0-36.0); Mean Corpuscular Hemoglobin 34.3 pg (27.0-31.0); RBC Distribution Width 12.3 % (11.5-14.5); White Blood Cell (WBC) Count 4.3 10x3/uL (4.8-10.8)
[2022-10-30] MEDS ORDERED: Dexamethasone 10 MG/ML VIAL ONE (13:32)
[2022-10-30 13:33] LABS: ALT (SGPT) 23 U/L (8-55); AST (SGOT) 42 U/L (5-34); Albumin 4.2 g/dL (3.4-4.8); Alkaline Phosphatase 56 U/L (40-110); Anion Gap 14 mmol/L (10-20); BUN (Urea Nitrogen) 15 mg/dL (8.4-25.7); Bilirubin, Total 0.7 mg/dL (0.2-1.2); Calc. Creatinine Clearance 0 mL/min (70-130); Calcium 9.2 mg/dL (7.8-10.44); Carbon Dioxide 22 mmol/L (23-31); Chloride 105 mmol/L (98-107); Estimated GFR 90; Globulin 2.7 g/dL (2.4-3.5); Glucose 88 mg/dL (83-110); Protein, Total 6.9 g/dL (5.8-8.1); Sodium 137 mmol/L (136-145)
[2022-10-30 13:34] LABS: MDiff Complete? YES; Macrocytosis SLIGHT = 6-15 cells (100X) (0-5/hpf); Mean Platelet Volume 9.6 fL (7.4-10.4); Platelet Count 76 10x3/uL (130-400); Platelet Morphology Comment Appears Decreased; Polychromasia SLIGHT = 2-3 cells (100X) (0-2/hpf)
== END 2022-10-30 14:29 | disposition home or self-care (01) ==
LOC: ERS 12:31
DX: U07.1 COVID-19 (principal); J18.9 Pneumonia, unspecified organism; I25.10 Atherosclerotic heart disease of native coronary artery without angina pectoris; K21.9 Gastro-esophageal reflux disease without esophagitis
CPT/HCPCS: 71045; 80053; 85025; J1100